=== PATIENT | male | born 1970 | race Caucasian/White ===

== ENCOUNTER 2016-06-12 06:23 | Emergency (ER) | payer MEDICAID ==
[2016-06-12] MEDS ORDERED: ONDANSETRON 4 MG/2 ML VIAL ONE (06:27)
[2016-06-12] MEDS ORDERED: LORazepam 2 MG/ML INJ IVP ONE ×3 (06:27→08:03)
[2016-06-12] MEDS ORDERED: NS 2,000 ML IV ONE (06:27)
--- NOTE | 2016-06-12 06:31 | EDPHY ---
H & P HPI/ROS: HPI CHIEF COMPLAINT: Alcohol draw, tremors HISTORY OF PRESENT ILLNESS: This patient very pleasant 46-year-old male homeless, and drinks alcohol daily he tells me he drinks vodka and drinks a large quantity of this. He states his last drink was at 7:00 p.m. last night he has [facility] and arrived to the emergency room by EMS for nausea, vomiting and tremors. Patient states as he feels he is getting through significant withdrawal. He denies any chest pain or shortness of breath denies headache. Patient's post be taking Depakote for bipolar however has not done so in a few days Upon arrival here in the emergency room the patient is tremulous, nauseous however does not have any other complaints. Patient denies any hallucinations. Of note this patient tells me that approximately a week week and a half ago patient was admitted to [facility] and in the ICU for 4 days for alcohol withdrawal and alcohol withdrawal seizures he tells me was on life support and intubated. Past Medical History: Bipolar disorder, Daily alcohol use, alcohol abuse, alcohol withdraw seizures Past Surgical History: No recent surgical history Social History: Homeless, drinks daily alcohol Family History: Noncontributory ROS REVIEW OF SYSTEMS: A comprehensive 10 point review of systems is otherwise negative aside from elements mentioned in the history of present illness. Exam Constitutional tremulous, anxious, sweaty triage nursing summary reviewed, vital signs reviewed, awake/alert. (tachy 116) Eyes normal conjunctivae and sclera, EOMI, PERRLA. HENT normal inspection, atraumatic, moist mucus membranes, no epistaxis, neck supple/ no meningismus, no raccoon eyes. Respiratory clear to auscultation bilaterally, normal breath sounds, no respiratory distress, no wheezing. Cardiovascular tachycardia, regular rhythm, no murmur, no edema, distal pulses normal. Gastrointestinal soft, non-tender, no rebound, no guarding, normal bowel sounds, no distension, no pulsatile mass. Genitourinary no CVA tenderness. Musculoskeletal no midline vertebral tenderness, full range of motion, no calf swelling, no tenderness of extremities, no meningismus, good pulses, neurovascularly intact. Skin diaphoretic, pink, warm, no rash, skin atraumatic. Neurologic tremulous, anxious awake, alert and oriented x 3, AAOx3, moves all 4 extremities equally, motor intact, sensory intact, CN II-XII intact, normal cerebellar, normal vision, normal speech. Psychiatric anxious Heme/Lymph/Immune no lymphadenopathy. Differential Diagnosis: Includes but is not limited to in a particular order alcohol withdrawal, dehydration, electrolyte abnormality, delirium tremens Medical Decision Making: The patient had an IV established be placed on full swatch paster, patient be given IV fluid bolus normal saline, an IV Ativan for alcohol withdrawal. He has been given 2 mg initial upon arrival he will most likely need another 2 mg. Re-evaluation: 0636: re-evaluation at this time patient received 4 mg IV Ativan he is getting IV fluids his tremors much improved he still is noted to be tachycardic in the 116 EKG interpretation by me on record in [employer] system. Impression time of EKG 6:41 a.m., this is sinus tachycardia rate of 100. Normal intervals. No signs of acute ischemia. No signs of injury pattern. 0708: Patient signed over to Dr. Nevarez at 7:00 a.m. shift change. Patient here with tachycardia and tremors greatly improved after IV fluids and 4 mg IV Ativan. Patient will need reassessment. No evidence of delirium tremens at this time. Magnesium noted to be leveling repleting this. Source: Patient, EMS - Personal History Tetanus Vaccine Date: 2011 - Medical/Surgical History Hx Asthma: No Hx Chronic Respiratory Disease: No Hx Diabetes: No Hx Cardiac Disease: No Hx Renal Disease: No Hx Cirrhosis: No Hx Alcoholism: Yes Hx HIV/AIDS: No Hx Splenectomy or Spleen Trauma: No Other PMH: Seizures, ETOH and drug abuse, BIPOLAR,HTN. Pt. has been sober for 0 days. - Social History Smoking Status: Current every day smoker Constitutional: Initial Vital Signs O2 Sat (%) 95 06/12/16 06:26 O2 Delivery Mode Room Air O2 (L/minute) 2 Allergies/Adverse Reactions: Penicillins Allergy (Intermediate, Verified 12/25/15 16:06) Home Medications: Medication Instructions Recorded Divalproex ER [Depakote ER 500 MG 500 mg PO BID #60 tab 12/25/15 (*)] Wellbutrin Xl 12/25/15 Medical Decision Making - Data Points Laboratory Results: Laboratory Results 06/12/16 06:30 06/12/16 06:30 Medications Given: Discontinued Medications Chlordiazepoxide (Librium 25 Mg Prepack#6) 1 btl TAKEHOME EDNOW ONE Stop: 06/12/16 11:44 Last Admin: 06/12/16 11:51 Dose: 1 btl Chlordiazepoxide HCl (Librium) 25 mg PO EDNOW ONE Stop: 06/12/16 07:47 Last Admin: 06/12/16 07:50 Dose: 25 mg Sodium Chloride (Ns) 2,000 mls @ 0 mls/hr IV ONCE ONE PRN Reason: Wide Open Stop: 06/12/16 06:28 Last Admin: 06/12/16 06:41 Dose: 2,000 mls Magnesium Sulfate (Magnesium Sulf 2 Gm (Premix)) 50 mls @ 50 mls/hr IV EDNOW ONE Stop: 06/12/16 08:06 Last Admin: 06/12/16 07:38 Dose: 50 mls Lorazepam (Ativan Injection) 2 mg IVP EDNOW ONE Stop: 06/12/16 06:28 Last Admin: 06/12/16 06:40 Dose: 2 mg Lorazepam (Ativan Injection) 2 mg IVP EDNOW ONE Stop: 06/12/16 06:29 Last Admin: 06/12/16 06:41 Dose: 2 mg Lorazepam (Ativan Injection) 2 mg IVP EDNOW ONE Stop: 06/12/16 08:04 Last Admin: 06/12/16 08:05 Dose: 2 mg Departure - Departure Disposition: Home, Routine, Self-Care Clinical Impression: Alcohol withdrawal Qualifiers: Complication of substance-induced condition: uncomplicated Qualified Code(s): F10.230 - Alcohol dependence with withdrawal, uncomplicated Condition: Fair Instructions: Chlordiazepoxide (By mouth), Alcohol Withdrawal (ED) Additional Instructions: Go directly to the [facility]. Librium per [facility]. Referrals: Patient,NotPresent [Unknown] - As per Instructions
[2016-06-12 06:41] VITALS: TEMP 98.6
--- NOTE | 2016-06-12 06:43 | CPEKG ---
Heart Rate: 100 RR Interval: 600 P-R Interval: 136 QRSD Interval: 88 QT Interval: 348 QTC Interval: 449 P Morenci: 24 QRS Morenci: 1 T Wave Morenci: 35 EKG Severity - OTHERWISE NORMAL ECG - EKG Impression: SINUS TACHYCARDIA Electronically Signed By: Ran Parmar 13-Jun-2016 06:38:41
[2016-06-12 06:47] LABS: % IMMATURE GRANULYOCYTES 0.5 % (0.0-1.1); ABSOLUTE IMMATURE GRANULOCYTES 0.07 10^3/uL (0.00-0.10); ADD DIFF? NO; ADD MORPH? NO; ADD SCAN? NO; ATYPICAL LYMPHOCYTE FLAG 0 (0-99); FRAGMENT RBC FLAG 0 (0-99); HEMATOCRIT 38.8 % (40.0-51.0); HEMOGLOBIN 13.7 g/dL (13.7-17.5); LEFT SHIFT FLG 10 (0-99); LIPEMIA HEMOLYSIS FLAG 90 (0-99); MEAN CELL HEMOGLOBIN 35.2 pg (27.9-34.1); MEAN CELL HEMOGLOBIN CONCENTR. 35.3 g/dL (32.4-36.7); MEAN CELL VOLUME 99.7 fL (81.5-99.8); MEAN PLATELET VOLUME 9.4 fL (8.7-11.7); PLATELET CLUMPS FLAG 0 (0-99); PLATELET COUNT 240 10^3/uL (150-400); RED BLOOD CELL COUNT 3.89 10^6/uL (4.40-6.38); RED CELL DISTRIBUTION WIDTH 14.6 % (11.5-15.2)
[2016-06-12 06:55] LABS: ALANINE AMINOTRANSFERASE 42 IU/L (21-72); ALBUMIN 3.9 g/dL (3.5-5.0); ALKALINE PHOSPHATASE 99 IU/L (38-126); ANION GAP 11 mEq/L (8-16); ASPARTATE AMINOTRANSFERASE 58 IU/L (17-59); BILIRUBIN,TOTAL 0.9 mg/dL (0.1-1.4); BILIRUBIN-CONJUGATED 0.3 mg/dL (0.0-0.5); BILIRUBIN-UNCONJUGATED 0.6 mg/dL (0.0-1.1); CALCIUM 9.4 mg/dL (8.5-10.4); CARBON DIOXIDE 27 mEq/l (22-31); CHLORIDE 103 mEq/L (97-110); CREATININE 0.6 mg/dL (0.7-1.3); ETHANOL SERUM < 10 mg/dL (0-10); GLOMERULAR FILTRATION RATE > 60; GLUCOSE 107 mg/dL (70-100); MAGNESIUM 1.5 mg/dL (1.6-2.3); POTASSIUM 4.1 mEq/L (3.5-5.2); SODIUM 141 mEq/L (134-144)
[2016-06-12] MEDS ORDERED: MAGNESIUM SULF 2 GM/WATER 50 ML IV ONE (07:07)
[2016-06-12] MEDS ORDERED: chlordiazePOXIDE 25 MG CAP PO ONE (07:46)
[2016-06-12] MEDS ORDERED: LORazepam 2 MG/ML INJ ONE (08:01)
[2016-06-12 08:07] VITALS: RESP 16
[2016-06-12] MEDS ORDERED: CHLORDIAZEPOXIDE 25MG PREPK#6 BTL TAKEHOME ONE (11:43)
[2016-06-12 12:00] VITALS: BP 122/87; PULSE 86; O2SAT 91
== END 2016-06-12 12:01 | disposition home or self-care (01) ==
LOC: EDUNIT#
DX: F10.230 Alcohol dependence with withdrawal, uncomplicated (principal); I10 Essential (primary) hypertension; F17.200 Nicotine dependence, unspecified, uncomplicated
CPT/HCPCS: 96374; G0480; J2405

== ENCOUNTER 2016-06-12 17:05 | Emergency (ER) | payer MEDICAID ==
[2016-06-12] MEDS ORDERED: NS 1,000 ML IV ONE (17:25)
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
[2016-06-12 19:05] VITALS: BP 147/90; PULSE 91; RESP 16; TEMP 97.9; O2SAT 93
== END 2016-06-12 19:06 | disposition home or self-care (01) ==
LOC: EDUNIT#
DX: F10.10 Alcohol abuse, uncomplicated (principal); I10 Essential (primary) hypertension; F17.200 Nicotine dependence, unspecified, uncomplicated

== ENCOUNTER 2017-03-24 23:38 | Emergency (ER) | payer MEDICAID ==
[2017-03-24 23:46] VITALS: RESP 16
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
[2017-03-25 03:29] VITALS: BP 121/80; PULSE 61; TEMP 97.9; O2SAT 96
== END 2017-03-25 03:27 | disposition home or self-care (01) ==
LOC: EDUNIT#
DX: M54.2 Cervicalgia (principal); R20.2 Paresthesia of skin; F17.200 Nicotine dependence, unspecified, uncomplicated

== ENCOUNTER 2017-06-26 14:11 | Emergency (ER) | payer MEDICAID ==
[2017-06-26 14:17] VITALS: BP 101/84; PULSE 133; RESP 18; TEMP 98.1; O2SAT 95
--- NOTE | 2017-06-26 14:52 | EDPHY ---
H & P Time Seen by Provider: 06/26/17 14:48 HPI/ROS: CHIEF COMPLAINT: "I want to go to detox" HISTORY OF PRESENT ILLNESS: 47-year-old homeless male history of alcoholism self [facility] requesting alcohol detoxification assistance, referred back to the emergency department to receive benzodiazepine. Denies suicidal or homicidal ideation. Last drink was approximately 5 hr ago. Denies seizure. Denies hallucination. Denies acute trauma or fall. REVIEW OF SYSTEMS: A ten point review of systems was performed and is negative with the exception of the items mentioned in the HPI PAST MEDICAL & SURGICAL HISTORY: Alcoholism. SOCIAL HISTORY:Positive for daily alcohol use PHYSICAL EXAM (Prior to examination, patient consented to physical exam, hands were washed and my usual and customary physical exam procedures followed) 1) GENERAL: poorly kept, foul smelling,, alert and oriented. Appears to be in no acute distress. Answering questions appropriately. Tremulous. 2) HEAD: Normocephalic, atraumatic 3) HEENT: Pupils equal, round, reactive to light bilaterally. Sclera anicteric. 4) NECK: Full range of motion, no meningeal signs. 5) LUNGS: Clear auscultation bilaterally, no wheezes, no rhonchi, no retractions. 6) HEART: Regular rate and rhythm, no murmur, no heave, no gallop. 7) ABDOMEN: No guarding, no rebound, no focal tenderness, 8) MUSCULOSKELETAL: Moving all extremities, no focal areas of tenderness, no obvious trauma. No peripheral edema or discoloration. 9) BACK: No CVA tenderness, no midline vertebral tenderness, no fluctuance, no step-off, no obvious trauma, no visual or palpable abnormality. 10) SKIN: No rash, no petechiae. 11) Psychiatric: Patient is oriented X 3, there is no agitation. 12) NEURO: Awake, alert, and oriented to person, place and time. Answers questions appropriately. There were no obvious focal neurologic abnormalities. No cerebellar dysfunction. Cranial nerves 2 through to 12 intact. Normal steady gait. Upper and lower extremities bilaterally with strength 5 / 5, reflexes 2+. DIFFERENTIAL DIAGNOSIS: In no particular include but limited to delirium tremens, acute alcohol withdrawal, alcohol withdrawal seizure Smoking Status: Current every day smoker Constitutional: Initial Vital Signs Temperature (C) 36.7 C 06/26/17 14:12 Heart Rate 133 H 06/26/17 14:12 Respiratory Rate 18 06/26/17 14:12 Blood Pressure 101/84 H 06/26/17 14:12 O2 Sat (%) 95 06/26/17 14:12 Allergies/Adverse Reactions: Penicillins Allergy (Intermediate, Verified 12/25/15 16:06) Home Medications: Medication Instructions Recorded Divalproex ER [Depakote ER 500 MG 500 mg PO BID #60 tab 12/25/15 (*)] Wellbutrin Xl 12/25/15 MDM/Departure - MDM ED Course/Re-evaluation: 3:04 p.m.: Plan will be benzodiazepine, [facility] with [facility]. Doubt DTs. Doubt seizure. Plan will be discharge to [facility] with Librium. He denies suicidal or homicidal ideation. Care of patient under supervision of secondary supervising physician Dr Pineda . - Depart Disposition: Home, Routine, Self-Care Clinical Impression: Alcohol withdrawal Qualifiers: Complication of substance-induced condition: uncomplicated Qualified Code(s): F10.230 - Alcohol dependence with withdrawal, uncomplicated Condition: Good Instructions: Abuse of Alcohol (ED), Chlordiazepoxide (By mouth) Referrals: [facility] Detox 24 Hours [Outside] (Go directly to the [facility])
[2017-06-26] MEDS ORDERED: CHLORDIAZEPOXIDE 25MG PREPK#6 BTL TAKEHOME ONE (15:08)
[2017-06-26] MEDS ORDERED: LORazepam 1 MG TAB PO ONE (15:08)
== END 2017-06-26 15:10 | disposition home or self-care (01) ==
DX: F10.230 Alcohol dependence with withdrawal, uncomplicated (principal); F17.200 Nicotine dependence, unspecified, uncomplicated

== ENCOUNTER 2017-06-27 12:27 | Emergency (ER) | payer MEDICAID ==
[2017-06-27 13:02] LABS: PLATELET COUNT 198 10^3/uL (150-400)
[2017-06-27] MEDS ORDERED: OLANZapine DISINTEGR 10 MG TAB PO ONE (13:33)
[2017-06-27] MEDS ORDERED: LORazepam 1 MG TAB PO ONE (14:08)
[2017-06-27] MEDS: NICOTINE POLACRILEX 2 MG GUM B PRN (14:11)
[2017-06-27] MEDS ORDERED: HALOPERIDOL LACT 5 MG/ML INJ IVP ONE (16:27)
--- NOTE | 2017-06-27 18:15 | EDPHY ---
H & P Stated Complaint: Hallucinations. M1 Hold - Personal History Current Tetanus Diphtheria and Acellular Pertussis (TDAP): Yes Tetanus Vaccine Date: 2011 - Medical/Surgical History Hx Asthma: No Hx Chronic Respiratory Disease: No Hx Diabetes: No Hx Cardiac Disease: No Hx Renal Disease: No Hx Cirrhosis: No Hx Alcoholism: Yes Hx HIV/AIDS: No Hx Splenectomy or Spleen Trauma: No Other PMH: Seizures, ETOH and drug abuse, BIPOLAR,HTN. - Social History Smoking Status: Current every day smoker Time Seen by Provider: 06/27/17 18:17 HPI/ROS: Chief complaint: Mental health hold History of present illness: This is a 47-year-old male brought to the emergency department by police on a mental health hold. Apparently he was found by police apparently hallucinating, specifically talking to a metal box. He does admit to alcohol use. Apparently he did suffer a head injury on the 9th of this month, was seen at [facility]. Records obtained, he did have a CT scan of the head and neck without acute findings at that time. On my evaluation patient is agitated. He states he should not be here. He states he was not hallucinating, he thought his girlfriend was playing tricks on him. He denies any illness or injury. He denies SI or HI. He does not want to be here. Review of systems: A 10 point review of systems was obtained and other than described above was negative (Bhupendra Russo) - Physical Exam Exam: General Appearance: Alert, nontoxic. Eyes: Pupils equal and round no pallor or injection. ENT, Mouth: Mucous membranes moist. Respiratory: There are no retractions, lungs are clear to auscultation. Cardiovascular: Regular rate and rhythm. Gastrointestinal: Abdomen is soft and non tender, no masses, bowel sounds normal. Neurological: Alert. Strength and sensation intact and symmetrical. Skin: Warm and dry, no rashes. Sabra in the scalp that appear to be healing well. Musculoskeletal: Neck is supple non tender. Extremities are symmetrical, full range of motion. Psychiatric: Patient is oriented X 3, there is no agitation. (Bhupendra Russo) Constitutional: Initial Vital Signs Temperature (C) 36.6 C 06/27/17 12:41 Heart Rate 108 H 06/27/17 12:41 Respiratory Rate 16 06/27/17 12:41 Blood Pressure 113/81 H 06/27/17 12:41 O2 Sat (%) 96 06/27/17 12:41 O2 Delivery Mode Room Air Allergies/Adverse Reactions: Penicillins Allergy (Intermediate, Verified 12/25/15 16:06) Home Medications: Medication Instructions Recorded Divalproex ER [Depakote ER 500 MG 500 mg PO BID #60 tab 12/25/15 (*)] Wellbutrin Xl 12/25/15 Triamcinolone 0.025% 1 kat TP BID #15 g 06/26/17 [Triamcinolone 0.025% Ointment (*)] Medical Decision Making ED Course/Re-evaluation: Patient seen under the supervision of my secondary supervising physician Dr. Giovanni Cook. Patient presents to the emergency department on an M1 hold. He is evaluated and medically cleared. Initial evaluation the psychiatric team are concerned he may still be under the influence of a drug given his agitation. They would like to delay evaluation until later this evening or early tomorrow morning. Patient has been agitated, he has been treated with Zyprexa, Ativan, Haldol. Now resting comfortably. Care of patient will be turned over to Dr. Arash Cruz at end of shift, 1800 hr. (Bhupendra Russo) 11:15 p.m. patient is still waiting for re-evaluation. Care transferred to Dr. Walters. (Arash Cruz) 6:15 a.m.- Over the course of my shift, patient has received Librium for alcohol withdrawal symptoms. His vital signs have remained normal. He was seen by the mental health worker who recommends [facility] his [facility] use. He was there yesterday and seemed to be himself though more angry than usual. They questioned if this was because he was in pain. He is welcome neck there in the patient would like to go. We will send him with Librium and some he rodriguez for pain. He no longer seems gravely disabled. ( Krys Walters) Differential Diagnosis: Included but not limited to drug abuse, anxiety, depression, bipolar, schizophrenia (Bhupendra Russo) - Data Points Laboratory Results: Laboratory Results 06/27/17 12:40 06/27/17 12:40 Medications Given: Discontinued Medications Chlordiazepoxide (Librium 25 Mg Prepack#6) 1 btl TAKEHOME EDNOW ONE Stop: 06/28/17 06:18 Last Admin: 06/28/17 06:50 Dose: 1 btl Chlordiazepoxide HCl (Librium) 50 mg PO EDNOW ONE Stop: 06/28/17 00:10 Last Admin: 06/28/17 00:11 Dose: 50 mg Chlordiazepoxide HCl (Librium) 25 mg PO EDNOW ONE Stop: 06/28/17 06:02 Last Admin: 06/28/17 06:16 Dose: 25 mg Diphenhydramine HCl (Benadryl Injection) 25 mg IVP EDNOW ONE Stop: 06/27/17 16:28 Last Admin: 06/27/17 16:34 Dose: 25 mg Haloperidol Lactate (Haldol Injection) 10 mg IVP EDNOW ONE Stop: 06/27/17 16:28 Last Admin: 06/27/17 16:34 Dose: 10 mg Ibuprofen (Motrin) 400 mg PO EDNOW ONE Stop: 06/28/17 06:18 Last Admin: 06/28/17 06:49 Dose: 400 mg Lorazepam (Ativan) 2 mg PO EDNOW ONE Stop: 06/27/17 14:09 Last Admin: 06/27/17 14:11 Dose: 2 mg Nicotine Polacrilex (Nicorette) 2 mg B PRN PRN PRN Reason: Nicotine Withdrawal Stop: 12/24/17 13:59 Last Admin: 06/28/17 04:55 Dose: 2 mg Olanzapine (Zyprexa Zydis) 10 mg PO EDNOW ONE Stop: 06/27/17 13:34 Last Admin: 06/27/17 13:36 Dose: 10 mg Oxycodone/Acetaminophen (Percocet 5/325mg Prepack#4) 1 btl TAKEHOME EDNOW ONE Stop: 06/28/17 06:28 Last Admin: 06/28/17 06:50 Dose: 1 btl Departure - Departure Disposition: Home, Routine, Self-Care Clinical Impression: Hallucinations Alcohol intoxication Qualifiers: Complication of substance-induced condition: with delirium Qualified Code(s): F10.921 - Alcohol use, unspecified with intoxication delirium Condition: Good Instructions: Chlordiazepoxide/Clidinium (By mouth), Oxycodone/Acetaminophen ( By mouth), At-Risk Alcohol Use (ED) Referrals: [facility] [Outside] - As per Instructions
[2017-06-27 22:12] VITALS: RESP 16
[2017-06-28] MEDS ORDERED: chlordiazePOXIDE 25 MG CAP ONE ×2 (00:08→05:59)
[2017-06-28] MEDS ORDERED: chlordiazePOXIDE 25 MG CAP PO ONE ×2 (00:09→06:01)
[2017-06-28] MEDS: NICOTINE POLACRILEX 2 MG GUM B PRN (04:55)
[2017-06-28 05:01] VITALS: O2SAT 97
[2017-06-28] MEDS ORDERED: CHLORDIAZEPOXIDE 25MG PREPK#6 BTL TAKEHOME ONE (06:17)
[2017-06-28] MEDS ORDERED: IBUPROFEN 200 MG TAB PO ONE (06:17)
[2017-06-28] MEDS ORDERED: OXYCODONE/APAP 5/325MG PREPACK#4 BTL TAKEHOME ONE (06:27)
[2017-06-28 06:59] VITALS: BP 113/75; PULSE 78; TEMP 98.1
== END 2017-06-28 07:08 | disposition home or self-care (01) ==
LOC: EDUNIT#
DX: R44.3 Hallucinations, unspecified (principal); F10.921 Alcohol use, unspecified with intoxication delirium; I10 Essential (primary) hypertension; F17.200 Nicotine dependence, unspecified, uncomplicated
CPT/HCPCS: 80305; 96374; G0480; J1200; J1630

== ENCOUNTER 2017-07-06 15:54 | Emergency (ER) | payer MEDICAID ==
[2017-07-06 16:01] VITALS: BP 147/80; PULSE 112; RESP 20; TEMP 98; O2SAT 95
--- NOTE | 2017-07-06 16:04 | EDPHY ---
H & P Time Seen by Provider: 07/06/17 16:01 HPI/ROS: CHIEF COMPLAINT: "I need my edison removed" HISTORY OF PRESENT ILLNESS: The patient is a 39-year-old male who presents to the emergency department to have his head edison removed. Patient states he had a seizure activity 8-10 days ago. He fell striking his head. This required suture repair. This was performed to [facility]. He does not want to edison removed there. He would rather have his edison removed here. He has had mild headache since the incident. No focal deficits. No nausea or vomiting. The patient continues to drink alcohol. No further seizure activity. REVIEW OF SYSTEMS: My complete review of systems is negative except as mentioned in the HPI. Past Medical/Surgical History: Includes alcohol abuse, seizure Smoking Status: Current every day smoker Physical Exam: Vitals noted GENERAL: Well-appearing, in no acute distress, alert. HEENT: Eyes normal to inspection, normal pharynx, no signs of dehydration. Patient has right posterior edison present. There is no surrounding erythema or warmth. No hematoma. No discharge. NECK: No thyromegaly, no lymphadenopathy, supple. No spinal tenderness RESPIRATORY: Clear to auscultation bilaterally, no rales, rhonchi or wheezing. CVS: Regular rate and rhythm, no rubs, murmurs, or gallops. ABDOMEN: Soft, nontender. BACK: Normal to inspection, no CVA tenderness. SKIN: Normal color, no rash, warm, dry. No pallor. EXTREMITIES: Normal NEURO/PSYCH: Alert and oriented x3, normal mood and affect, normal motor sensory exam. No obvious cranial nerve deficit. Constitutional: Initial Vital Signs Temperature (C) 36.6 C 07/06/17 16:00 Heart Rate 112 H 07/06/17 16:00 Respiratory Rate 20 07/06/17 16:00 Blood Pressure 147/80 H 07/06/17 16:00 O2 Sat (%) 95 07/06/17 16:00 O2 Delivery Mode Room Air Allergies/Adverse Reactions: Penicillins Allergy (Intermediate, Verified 12/25/15 16:06) Home Medications: Medication Instructions Recorded Divalproex ER [Depakote ER 500 MG 500 mg PO BID #60 tab 12/25/15 (*)] Wellbutrin Xl 12/25/15 Triamcinolone 0.025% 1 kat TP BID #15 g 06/26/17 [Triamcinolone 0.025% Ointment (*)] Lamictal 07/06/17 Medical Decision Making ED Course/Re-evaluation: In the emergency department I discussed possible etiologies with the patient. He had his edison removed. He is given warnings prior to leaving. He will return with worsening symptoms. Differential Diagnosis: My differential includes but is not limited to staple remover, wound infection, abscess, intracranial hemorrhage, spinal injury Departure - Departure Disposition: Home, Routine, Self-Care Clinical Impression: Visit for wound check Condition: Good Instructions: Wound Healing and Your Diet (ED) Referrals: [facility],. [Clinic] - 3-4 days, if not improved
== END 2017-07-06 16:22 | disposition home or self-care (01) ==
LOC: CED 15:54
DX: Z48.02 Encounter for removal of sutures (principal); F17.200 Nicotine dependence, unspecified, uncomplicated

== ENCOUNTER 2017-09-04 17:59 | Emergency (ER) | payer MEDICAID ==
--- NOTE | 2017-09-04 18:13 | EDPHY ---
H & P Stated Complaint: WANTS TO QUIT DRINKING, LEFT [facility] TODAY, + ETOH Source: Patient Exam Limitations: No limitations - Personal History Current Tetanus Diphtheria and Acellular Pertussis (TDAP): Yes Tetanus Vaccine Date: 2011 - Medical/Surgical History Hx Asthma: No Hx Chronic Respiratory Disease: No Hx Diabetes: No Hx Cardiac Disease: No Hx Renal Disease: No Hx Cirrhosis: No Hx Alcoholism: Yes Hx HIV/AIDS: No Hx Splenectomy or Spleen Trauma: No Other PMH: Seizures, ETOH and drug abuse, BIPOLAR,HTN. - Social History Smoking Status: Current every day smoker Time Seen by Provider: 09/04/17 18:12 HPI/ROS: HPI: This is a 47-year-old male who presents with Chief Complaint: WANTS TO QUIT DRINKING, LEFT [facility] TODAY, + ETOH Location: psych Quality: Intoxication with alcohol Duration: Today Signs and Symptoms: no fever, no nausea, no vomiting, no hematemesis, no blood in stool, no abdominal bloating, no diarrhea, no back pain, no urinary symptoms , no testicular/groin pain, no indigestion, no chest pain, no shortness of breath Timing: Acute on chronic Severity: Severe Context: Patient reports that he has history of bipolar disorder and is supposed to be taking Depakote but is noncompliance as well as alcohol abuse and dependence presents today voluntarily from the street reporting that he drank a "traveler" of vodka since 8:00 a.m. This morning. He was [facility] into the [facility] for approximately 2 days per his admission and did not drink alcohol for those 2 days. He reports that if he is discharged at this time he is going to walk across the street in front of a car and get hit in order to end his life. He reports that when he drinks alcohol in becomes intoxicated he becomes very sad about his entire life. He reports that he has a girlfriend that is and [place] that has a 14-year-old girl that he cares about deeply. He has not eaten any food today and is requesting a meal. Patient denies homicidal ideation/paranoia/hallucinations. Modifying Factors: None Comment: ROS: see HPI Constitutional: No fever, no chills, no weight loss Eyes: No blurred vision Respiratory: No shortness of breath, no cough Cardiovascular: No chest pain, no palpitations Gastrointestinal: No nausea, no vomiting, no diarrhea, no hematemesis, no blood in stool Genitourinary: No dysuria, no blood in urine Extremities: No myalgias, no edema Neurologic: No weakness, no numbness Skin: No rashes, no petechiae Hematologic: No bruising, no bleeding MEDICAL/SURGICAL/SOCIAL HISTORY: Medical history: Seizures, ETOH and drug abuse, BIPOLAR, HTN. Surgical history: Denies Social history: Homeless. Current every day smoker. Family history noncontributory. CONSTITUTIONAL: Untidy, intoxicated, smells heavily of alcohol middle-aged white male, awake and alert, no obvious distress HEENT: Atraumatic and normocephalic, PERRL, EOMI. Nares patent; no rhinorrhea; no nasal mucosal edema. Tympanic membranes clear. Oropharynx clear, no exudate and moist pink mucosa. Airway patent. No lymphadenopathy. No meningismus. Cardiovascular: Normal S1/S2, regular rate, regular rhythm, without murmur rub or gallop. PULMONARY/CHEST: Symmetrical and nontender. Clear to auscultation bilaterally. Good air movement. No accessory muscle usage. ABDOMEN: Soft, nondistended, nontender, no rebound, no guarding, no peritoneal signs, no masses or organomegaly. No CVAT. EXTREMITIES: 2/2 pulses, strength 5/5, no deformities, no clubbing, no cyanosis or edema. NEUROLOGICAL: no focal neuro deficits. GCS 15. SKIN: Warm and dry, no erythema. no rash. Good capillary refill. PSYCH: Fair eye contact, no flight of ideas, organized thought process, fair insight and judgment, no auditory and visual command hallucinations, + suicidal ideation with a plan, no homicidal ideation, no paranoia ([place]) Constitutional: Initial Vital Signs Temperature (C) 36.7 C 09/04/17 18:05 Heart Rate 89 09/04/17 18:05 Respiratory Rate 16 09/04/17 18:05 Blood Pressure 133/101 H 09/04/17 18:05 O2 Sat (%) 96 09/04/17 18:05 O2 Delivery Mode Room Air Allergies/Adverse Reactions: Penicillins Allergy (Intermediate, Verified 12/25/15 16:06) Home Medications: Medication Instructions Recorded Gabapentin 09/04/17 Librium 09/04/17 OLANZapine 09/04/17 Medical Decision Making ED Course/Re-evaluation: 1819: Patient placed on detain her as he is clearly intoxicated and not thinking clearly. Patient admits that he wants a dry place to stay during the rain and a warm meal. He checked himself out this morning from the [facility] and drink alcohol starting at 8:00 a.m. I suspect that once he becomes more sober and is re-evaluated, he will no longer have suicidal thoughts. Patient is currently calm and cooperative. He reports that he is not willing to go back to the [facility] at this time. Patient does not meet M1 hold criteria. 1824: Breathalyzer .273 1899: Watching TV, ate a sandwich and drinking juice without any difficulties. 2046: Reassessed patient who reports that he is willing to go to the [facility]. Given 50 mg of Librium. Ambulatory without any signs of ataxia. Patient denies any homicidal ideation/suicidal ideation. He has no signs of alcohol withdrawal seizures. Patient requesting home medications that he has not taken today including Zyprexa 5 mg, gabapentin 600 mg, Depakote 500 mg. 2234: Discharged to the [facility]. This patient was seen under the supervision of my secondary supervising physician. I evaluated care for this patient independently. Discussed this patient with Dr. Rose who did see the patient. (Angelica Mukherjee) Differential Diagnosis: Differential diagnosis includes but is not limited to alcohol intoxication, alcohol delirium, major depression. (Angelica Mukherjee) Other Provider: The patient was evaluated and managed by the Physician Digital Advertising Analyst. [I discussed the patient's presentation and course with the midlevel provider with them and agree with the evaluation.] My co-signature indicates that I have reviewed this chart and I agree with the findings and plan of care as documented. I am the secondary supervising physician. I did evaluate this patient briefly. As documented he is untidy, smells of alcohol, and has been sobering appropriately in the emergency department. He is alert, oriented, with a nonfocal neurologic exam. Vital signs have been stable. We discussed options including discharge to the [facility] where he could continue to have treatment for alcohol withdrawal. Patient does report that he is concerned that he may have an alcohol withdrawal seizure. He agreed that a discharged to the [facility] would be the safest option. He was given a dose of Librium in the emergency department and discharged to the [facility] of Librium protocol. (Johanna Rose) - Data Points Medications Given: Discontinued Medications Chlordiazepoxide (Librium 25 Mg Prepack#6) 1 btl TAKEHOME EDNOW ONE Stop: 09/04/17 20:44 Last Admin: 09/04/17 22:14 Dose: 1 btl Chlordiazepoxide HCl (Librium) 50 mg PO EDNOW ONE Stop: 09/04/17 20:47 Last Admin: 09/04/17 22:13 Dose: 50 mg Divalproex Sodium (Depakote) 500 mg PO ONCE ONE Stop: 09/04/17 22:00 Last Admin: 09/04/17 22:14 Dose: 500 mg Gabapentin (Neurontin) 600 mg PO EDNOW ONE Stop: 09/04/17 21:59 Last Admin: 09/04/17 22:14 Dose: 600 mg Olanzapine (Zyprexa) 5 mg PO ONCE ONE Stop: 09/04/17 21:59 Last Admin: 09/04/17 22:13 Dose: 5 mg Departure - Departure Disposition: Home, Routine, Self-Care Clinical Impression: Alcohol intoxication, Alcoholism Condition: Good Instructions: Abuse of Alcohol (ED) Additional Instructions: Please go directly to the [facility]. Referrals: [facility] [Outside] - As per Instructions
[2017-09-04] MEDS ORDERED: CHLORDIAZEPOXIDE 25MG PREPK#6 BTL TAKEHOME ONE (20:43)
[2017-09-04] MEDS ORDERED: chlordiazePOXIDE 25 MG CAP PO ONE (20:46)
[2017-09-04 21:58] VITALS: BP 103/85
[2017-09-04] MEDS ORDERED: OLANZapine 2.5 MG TAB PO ONE (21:58)
[2017-09-04] MEDS ORDERED: GABAPENTIN 300 MG CAP PO ONE (21:58)
[2017-09-04] MEDS ORDERED: DIVALPROEX NA 500 MG TAB PO ONE (21:59)
== END 2017-09-04 22:32 | disposition home or self-care (01) ==
DX: F10.129 Alcohol abuse with intoxication, unspecified (principal); F17.200 Nicotine dependence, unspecified, uncomplicated; I10 Essential (primary) hypertension

== ENCOUNTER 2017-10-22 03:50 | Emergency (ER) | payer MEDICAID, OTHER ==
[2017-10-22] MEDS ORDERED: LORazepam 2 MG/ML INJ IVP ONE ×2 (03:57→05:07)
[2017-10-22] MEDS ORDERED: NS 1,000 ML IV ONE (03:57)
[2017-10-22] MEDS ORDERED: PHENobarbital NA 130 MG/ML VIAL IVP ONE (05:07)
--- NOTE | 2017-10-22 05:10 | EDPHY ---
H & P Stated Complaint: Seizure at [facility], ETOH withdrawal Time Seen by Provider: 10/22/17 04:07 HPI/ROS: HPI The patient presents with a seizure, brought in by ambulance from the [facility] where he has been for the last 1 day. His last alcoholic drink was yesterday. He normally drinks 2 pt of hard alcohol a day. He had been feeling tremulous today while at the [facility], he had improved with Librium. He says he felt a seizure coming on and then lost consciousness. He did bite his tongue. He continues to feel shaky now without any nausea or vomiting. He is feeling slightly anxious.. REVIEW OF SYSTEMS Constitutional: No fever, no chills. Eyes: No discharge. ENT: No sore throat. Cardiovascular: No chest pain, no palpitations. Respiratory: No cough, no shortness of breath. Gastrointestinal: No abdominal pain, no vomiting. Genitourinary: No hematuria. Musculoskeletal: No back pain. Skin: No rashes. Neurological: No headache. PMHx: Bipolar disorder, hypertension, history of alcohol withdrawal and seizures Soc Hx: Heavy alcohol use PHYSICAL General Appearance: Alert, no distress Eyes: Pupils equal and round no pallor or injection ENT, Mouth: Mucous membranes moist, there is a 1 cm superficial midline tongue laceration Respiratory: There are no retractions, lungs are clear to auscultation Cardiovascular: Tachycardic rate and regular rhythm Gastrointestinal: Abdomen is soft and non-tender, no masses, bowel sounds normal Neurological: A&O, moves all extremities, hand tremors present Skin: Warm and dry, no rashes Musculoskeletal: Neck is supple non tender Extremities: symmetrical, full range of motion Psychiatric: Patient is oriented X 3, there is no agitation Source: Patient, EMS Exam Limitations: No limitations - Personal History Current Tetanus Diphtheria and Acellular Pertussis (TDAP): Yes Tetanus Vaccine Date: 2011 - Medical/Surgical History Hx Asthma: No Hx Chronic Respiratory Disease: No Hx Diabetes: No Hx Cardiac Disease: No Hx Renal Disease: No Hx Cirrhosis: No Hx Alcoholism: Yes Hx HIV/AIDS: No Hx Splenectomy or Spleen Trauma: No Other PMH: Seizures, ETOH and drug abuse, BIPOLAR,HTN. - Social History Smoking Status: Current every day smoker Constitutional: Initial Vital Signs Temperature (C) 36.7 C 10/22/17 03:55 Heart Rate 118 H 10/22/17 03:55 Respiratory Rate 20 10/22/17 03:55 Blood Pressure 144/84 H 10/22/17 03:55 O2 Sat (%) 97 10/22/17 03:55 O2 Delivery Mode Room Air Allergies/Adverse Reactions: Penicillins Allergy (Intermediate, Verified 10/22/17 03:55) Home Medications: Medication Instructions Recorded Gabapentin 09/04/17 Librium 09/04/17 OLANZapine 09/04/17 Medical Decision Making Differential Diagnosis: 47-year-old male with history of alcohol abuse including alcohol withdrawal and seizure presents brought in by ambulance after a seizure which occurred at the [facility] just prior to arrival. The patient does appear to be in alcohol withdrawal currently with tachycardia, tremor. Differential diagnoses considered include alcohol withdrawal seizure, epilepsy, head injury, electrolyte disturbance. In the emergency department, patient was started on IV fluids, he received 2 mg of Ativan with improvement in his symptoms. His symptoms then recurred and he became more tachycardic, I have written for additional Ativan and a dose of phenobarbital. Labs were checked and demonstrated anion gap acidosis which I suspect is more likely due to seizure verses alcoholic ketoacidosis as he does not have any vomiting, has been able to take p.o.. He does have a transaminitis , suspect this is due to his alcohol use. I believe he is suitable for discharge back to the [facility] with Librium. - Data Points Laboratory Results: Laboratory Results 10/22/17 07:00 10/22/17 07:00 10/22/17 10/22/17 07:00 07:00 WBC 9.50 10^3/uL 10^3/uL (3.80-9.50) RBC 4.24 10^6/uL L 10^6/uL (4.40-6.38) Hgb 15.2 g/dL g/dL (13.7-17.5) Hct 45.9 % % (40.0-51.0) MCV 108.3 fL H fL (81.5-99.8) MCH 35.8 pg H pg (27.9-34.1) MCHC 33.1 g/dL g/dL (32.4-36.7) RDW 13.5 % % (11.5-15.2) Plt Count 189 10^3/uL 10^3/uL (150-400) MPV 10.8 fL fL (8.7-11.7) Neut % (Auto) 56.7 % % (39.3-74.2) Lymph % (Auto) 22.7 % % (15.0-45.0) [place] % (Auto) 15.1 % H % (4.5-13.0) Eos % (Auto) 1.9 % % (0.6-7.6) Baso % (Auto) 3.3 % H % (0.3-1.7) Nucleat RBC Rel Count 0.0 % % (0.0-0.2) Absolute Neuts (auto) 5.39 10^3/uL 10^3/uL (1.70-6.50) Absolute Lymphs (auto) 2.16 10^3/uL 10^3/uL (1.00-3.00) Absolute Monos (auto) 1.43 10^3/uL H 10^3/uL (0.30-0.80) Absolute Eos (auto) 0.18 10^3/uL 10^3/uL (0.03-0.40) Absolute Basos (auto) 0.31 10^3/uL H 10^3/uL (0.02-0.10) Absolute Nucleated RBC 0.00 10^3/uL 10^3/uL (0-0.01) Immature Gran % 0.3 % % (0.0-1.1) Immature Gran # 0.03 10^3/uL 10^3/uL (0.00-0.10) Sodium 144 mEq/L mEq/L (135-145) Potassium 3.2 mEq/L L mEq/L (3.3-5.0) Chloride 98 mEq/L mEq/L (97-110) Carbon Dioxide 10 mEq/l L mEq/l (22-31) Anion Gap 36 mEq/L H mEq/L (8-16) BUN 3 mg/dL L mg/dL (7-23) Creatinine 0.6 mg/dL L mg/dL (0.7-1.3) Estimated GFR > 60 Glucose 129 mg/dL H mg/dL (70-100) Calcium 9.2 mg/dL mg/dL (8.5-10.4) Total Bilirubin 1.3 mg/dL mg/dL (0.1-1.4) AST 323 IU/L H IU/L (17-59) ALT 165 IU/L H IU/L (21-72) Alkaline Phosphatase 138 IU/L H IU/L (38-126) Total Protein 7.6 g/dL g/dL (6.3-8.2) Albumin 4.4 g/dL g/dL (3.5-5.0) Ethyl Alcohol < 10 mg/dL mg/dL (0-10) Medications Given: Discontinued Medications Sodium Chloride (Ns) 1,000 mls @ 3,000 mls/hr IV ONCE ONE Stop: 10/22/17 04:16 Last Admin: 10/22/17 04:02 Dose: 1,000 mls Lorazepam (Ativan Injection) 2 mg IVP EDNOW ONE Stop: 10/22/17 03:58 Last Admin: 10/22/17 04:02 Dose: 2 mg Lorazepam (Ativan Injection) 1 mg IVP EDNOW ONE Stop: 10/22/17 05:08 Last Admin: 10/22/17 05:21 Dose: 1 mg Phenobarbital Sodium (Phenobarbital) 130 mg IVP ONCE ONE Stop: 10/22/17 05:08 Last Admin: 10/22/17 05:35 Dose: 130 mg Departure - Departure Disposition: Home, Routine, Self-Care Clinical Impression: Alcohol withdrawal seizure Qualifiers: Complication of substance-induced condition: with delirium Qualified Code(s): F10.231 - Alcohol dependence with withdrawal delirium Condition: Good Instructions: Alcohol Withdrawal (DC) Additional Instructions: Please return to the emergency department if your worse in any way. Referrals: [facility] [Other] - As per Instructions
[2017-10-22 07:14] LABS: PLATELET COUNT 189 10^3/uL (150-400)
[2017-10-22] MEDS ORDERED: CHLORDIAZEPOXIDE 25MG PREPK#6 BTL TAKEHOME ONE (08:00)
[2017-10-22 08:11] VITALS: BP 130/94
== END 2017-10-22 08:41 | disposition home or self-care (01) ==
LOC: EDUNIT#
DX: F10.231 Alcohol dependence with withdrawal delirium (principal); I10 Essential (primary) hypertension; F17.200 Nicotine dependence, unspecified, uncomplicated
CPT/HCPCS: 96374; G0480; J2060; J2560

== ENCOUNTER 2017-11-12 03:45 | Emergency (ER) | payer MEDICAID, OTHER ==
--- NOTE | 2017-11-12 03:53 | EDPHY ---
H & P Stated Complaint: From [facility] for Librium Time Seen by Provider: 11/12/17 03:53 HPI/ROS: HPI CHIEF COMPLAINT: From the [facility] needs Librium HISTORY OF PRESENT ILLNESS: Very pleasant 47-year-old male, homeless, history of alcoholism daily alcohol use he has been at the [facility]. He sent here by cab checked in the emergency room to receive Librium. He is going to alcohol withdrawal. He denies hallucinating. Denies chest pain or shortness of breath , vital signs are stable upon arrival. Slightly shaky. Past Medical History: Alcoholism daily alcohol use, history of alcohol withdrawal seizure Past Surgical History: Denies recent surgery Social History: Homeless, daily alcohol use typically drinks vodka Family History: Noncontributory ROS REVIEW OF SYSTEMS: A comprehensive 10 point review of systems is otherwise negative aside from elements mentioned in the history of present illness. Exam Constitutional tremulous, anxious, triage nursing summary reviewed, vital signs reviewed, awake/alert. Eyes normal conjunctivae and sclera, EOMI, PERRLA. HENT normal inspection, atraumatic, moist mucus membranes, no epistaxis, neck supple/ no meningismus, no raccoon eyes. Respiratory clear to auscultation bilaterally, normal breath sounds, no respiratory distress, no wheezing. Cardiovascular rate normal, regular rhythm, no murmur, no edema, distal pulses normal. Gastrointestinal soft, non-tender, no rebound, no guarding, normal bowel sounds, no distension, no pulsatile mass. Genitourinary no CVA tenderness. Musculoskeletal no midline vertebral tenderness, full range of motion, no calf swelling, no tenderness of extremities, no meningismus, good pulses, neurovascularly intact. Skin pink, warm, & dry, no rash, skin atraumatic. Neurologic tremulous, anxious awake, alert and oriented x 3, AAOx3, moves all 4 extremities equally, motor intact, sensory intact, CN II-XII intact, normal cerebellar, normal vision, normal speech. Psychiatric normal mood/affect. Heme/Lymph/Immune no lymphadenopathy. Differential Diagnosis: Includes but is not limited to in a particular order alcohol withdrawal, need for medications from the [facility]. Medical Decision Making: Plan for this patient p.o. Librium 50 mg here in emergency room, Librium take-home pack, 1 mg p. O. Ativan here in the emergency room. And then patient can be appropriately dispositioned back to the [facility]. - Personal History Current Tetanus/Diphtheria Vaccine: Unsure Current Tetanus Diphtheria and Acellular Pertussis (TDAP): Unsure Tetanus Vaccine Date: 2011 - Medical/Surgical History Hx Asthma: No Hx Chronic Respiratory Disease: No Hx Diabetes: No Hx Cardiac Disease: No Hx Renal Disease: No Hx Cirrhosis: No Hx Alcoholism: Yes Hx HIV/AIDS: No Hx Splenectomy or Spleen Trauma: No Other PMH: Seizures, ETOH and drug abuse, BIPOLAR,HTN. - Social History Smoking Status: Current every day smoker Constitutional: Initial Vital Signs Temperature (C) 36.7 C 11/12/17 03:48 Heart Rate 94 11/12/17 03:48 Respiratory Rate 17 11/12/17 03:48 Blood Pressure 140/94 H 11/12/17 03:48 O2 Sat (%) 92 11/12/17 03:48 O2 Delivery Mode Room Air Allergies/Adverse Reactions: Penicillins Allergy (Intermediate, Verified 10/22/17 03:55) Home Medications: Medication Instructions Recorded Gabapentin 09/04/17 Librium 09/04/17 OLANZapine 09/04/17 Departure - Departure Disposition: Home, Routine, Self-Care Clinical Impression: Alcohol withdrawal Qualifiers: Complication of substance-induced condition: uncomplicated Qualified Code(s): F10.230 - Alcohol dependence with withdrawal, uncomplicated Condition: Good Instructions: Alcohol Dependence (ED), Alcohol Withdrawal (ED) Referrals: [facility] [Other] - As per Instructions
[2017-11-12] MEDS ORDERED: CHLORDIAZEPOXIDE 25MG PREPK#6 BTL TAKEHOME ONE (03:55)
[2017-11-12] MEDS ORDERED: LORazepam 1 MG TAB PO ONE (03:55)
[2017-11-12] MEDS ORDERED: chlordiazePOXIDE 25 MG CAP PO ONE (03:55)
[2017-11-12 04:43] VITALS: BP 134/91
== END 2017-11-12 04:49 | disposition home or self-care (01) ==
DX: F10.230 Alcohol dependence with withdrawal, uncomplicated (principal); I10 Essential (primary) hypertension; F17.200 Nicotine dependence, unspecified, uncomplicated

== ENCOUNTER 2018-04-22 14:41 | Emergency (ER) | payer MEDICAID ==
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
[2018-04-22 18:52] VITALS: BP 118/83
== END 2018-04-22 18:50 | disposition home or self-care (01) ==
LOC: EDUNIT#
DX: S00.81XA Abrasion of other part of head, initial encounter (principal); M79.641 Pain in right hand; Y04.8XXA Assault by other bodily force, initial encounter; Y92.9 Unspecified place or not applicable; Y93.9 Activity, unspecified; Y99.9 Unspecified external cause status
CPT/HCPCS: L0120

== ENCOUNTER 2018-04-24 06:00 | Emergency (ER) | payer OTHER, MEDICAID ==
[2018-04-24] MEDS ORDERED: HYDROmorphONE/DILAUDID 2 MG/ML INJ IVP ONE (06:06)
[2018-04-24] MEDS ORDERED: ONDANSETRON 4 MG/2 ML VIAL IVP ONE (06:06)
[2018-04-24] MEDS ORDERED: NS 1,000 ML IV ONE ×2 (06:06→07:01)
[2018-04-24] MEDS ORDERED: LORazepam 2 MG/ML INJ IVP ONE ×2 (06:06→06:59)
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
[2018-04-24 06:21] LABS: PLATELET COUNT 246 10^3/uL (150-400)
[2018-04-24] MEDS ORDERED: HYDROmorphONE/DILAUDID 1 MG/ML INJ ONE (06:21)
[2018-04-24 08:33] VITALS: BP 133/87
== END 2018-04-24 08:53 | disposition home or self-care (01) ==
LOC: EDUNIT#
DX: F10.230 Alcohol dependence with withdrawal, uncomplicated (principal); S06.0X0D Concussion without loss of consciousness, subsequent encounter; E86.9 Volume depletion, unspecified; F31.9 Bipolar disorder, unspecified; Z59.0 Homelessness
CPT/HCPCS: 96374; G0480; J1170; J2060; J2405

== ENCOUNTER 2018-05-01 20:52 | Emergency (ER) | payer MEDICAID ==
--- NOTE | 2018-05-01 20:56 | EDPHY ---
H & P Source: Patient - Personal History Tetanus Vaccine Date: 2017 - Medical/Surgical History Hx Asthma: No Hx Chronic Respiratory Disease: No Hx Diabetes: No Hx Cardiac Disease: No Hx Renal Disease: No Hx Cirrhosis: No Hx Alcoholism: Yes Hx HIV/AIDS: No Hx Splenectomy or Spleen Trauma: No Other PMH: Seizures, ETOH and drug abuse, BIPOLAR,HTN. - Social History Smoking Status: Current every day smoker Time Seen by Provider: 05/01/18 20:56 HPI/ROS: HPI CHIEF COMPLAINT: Depression, alcohol intoxication HISTORY OF PRESENT ILLNESS: 48-year-old male, history of polysubstance abuse, alcohol dependency, homelessness, presents emergency room for feeling depressed , and highly intoxicated with alcohol. He arrives to the emergency room by EMS highly intoxicated with alcohol. He states he is very depressed. States he has no will to live. Past Medical History: Seizures, alcohol abuse, alcohol dependency, alcohol draw seizures, bipolar disorder, polysubstance abuse, homeless Past Surgical History: Denies recent surgery Social History: Homeless with daily alcohol use polysubstance abuse. Family History: Denies ROS REVIEW OF SYSTEMS: 10 Systems were reviewed and negative with the exception of the elements mentioned in the history of present illness. Exam Constitutional unkept, disheveled, smells of alcohol, intoxicated, triage nursing summary reviewed, vital signs reviewed, awake/alert. Eyes normal conjunctivae and sclera, EOMI, PERRLA. HENT poor oral hygiene. normal inspection, atraumatic, moist mucus membranes, no epistaxis, neck supple/ no meningismus, no raccoon eyes. Respiratory clear to auscultation bilaterally, normal breath sounds, no respiratory distress, no wheezing. Cardiovascular rate normal, regular rhythm, no murmur, no edema, distal pulses normal. Gastrointestinal soft, non-tender, no rebound, no guarding, normal bowel sounds, no distension, no pulsatile mass. Genitourinary no CVA tenderness. Musculoskeletal no midline vertebral tenderness, full range of motion, no calf swelling, no tenderness of extremities, no meningismus, good pulses, neurovascularly intact. Skin pink, warm, & dry, no rash, skin atraumatic. Neurologic intoxicated. awake, alert and oriented x 3, AAOx3, moves all 4 extremities equally, motor intact, sensory intact, CN II-XII intact, normal cerebellar, normal vision, normal speech. Psychiatric flat affect, depressed Heme/Lymph/Immune no lymphadenopathy. Differential Diagnosis: Includes but is not limited to in a particular order: Alcohol intoxication, mood disorder, depression, bipolar disorder, substance abuse Medical Decision Making: Plan for this patient blood draw for medical clearance. Patient need mental health evaluation after sobering. Voluntary at this time. Re-evaluation: 2223PM: Patient signed over to Dr. Walters Pending Sobriety and re-eval. ( Ran Parmar) 5:00 a.m.- Patient is now awake and alert. He is no longer intoxicated in actually feels mildly shaky like he might begin to withdraw. I have talked to him and he feels remorseful about his drinking last night but does not have any suicidal or homicidal thoughts. [facility] because he has a good support system of several friends there. I will discharge him from the emergency department with Librium. He says he will not drink alcohol while taking this medication. (Krys Walters) Constitutional: Initial Vital Signs Temperature (C) 37.0 C 05/01/18 21:00 Heart Rate 87 05/01/18 21:00 Respiratory Rate 18 05/01/18 21:00 Blood Pressure 134/95 H 05/01/18 21:00 O2 Sat (%) 94 05/01/18 21:00 O2 Delivery Mode Room Air Allergies/Adverse Reactions: Penicillins Allergy (Intermediate, Verified 05/01/18 21:32) Home Medications: Medication Instructions Recorded Gabapentin 09/04/17 Clonidine 04/24/18 Depakote 04/24/18 chlordiazePOXIDE [Librium] 0 mg PO TID 05/01/18 - Data Points Laboratory Results: Laboratory Results 05/01/18 21:14 05/01/18 21:14 05/01/18 05/01/18 05/01/18 21:14 21:14 21:05 WBC 7.86 10^3/uL 10^3/uL (3.80-9.50) RBC 4.50 10^6/uL 10^6/uL (4.40-6.38) Hgb 15.6 g/dL g/dL (13.7-17.5) Hct 45.9 % % (40.0-51.0) MCV 102.0 fL H fL (81.5-99.8) MCH 34.7 pg H pg (27.9-34.1) MCHC 34.0 g/dL g/dL (32.4-36.7) RDW 13.9 % % (11.5-15.2) Plt Count 274 10^3/uL 10^3/uL (150-400) MPV 9.2 fL fL (8.7-11.7) Neut % (Auto) 58.3 % % (39.3-74.2) Lymph % (Auto) 21.0 % % (15.0-45.0) Holmes % (Auto) 12.7 % % (4.5-13.0) Eos % (Auto) 4.8 % % (0.6-7.6) Baso % (Auto) 2.8 % H % (0.3-1.7) Nucleat RBC Rel Count 0.0 % % (0.0-0.2) Absolute Neuts (auto) 4.58 10^3/uL 10^3/uL (1.70-6.50) Absolute Lymphs (auto) 1.65 10^3/uL 10^3/uL (1.00-3.00) Absolute Monos (auto) 1.00 10^3/uL H 10^3/uL (0.30-0.80) Absolute Eos (auto) 0.38 10^3/uL 10^3/uL (0.03-0.40) Absolute Basos (auto) 0.22 10^3/uL H 10^3/uL (0.02-0.10) Absolute Nucleated RBC 0.00 10^3/uL 10^3/uL (0-0.01) Immature Gran % 0.4 % % (0.0-1.1) Immature Gran # 0.03 10^3/uL 10^3/uL (0.00-0.10) Sodium 143 mEq/L mEq/L (135-145) Potassium 3.7 mEq/L mEq/L (3.5-5.2) Chloride 110 mEq/L mEq/L (97-110) Carbon Dioxide 24 mEq/l mEq/l (22-31) Anion Gap 9 mEq/L mEq/L (6-14) BUN 10 mg/dL mg/dL (7-23) Creatinine 0.7 mg/dL mg/dL (0.7-1.3) Estimated GFR > 60 Glucose 71 mg/dL mg/dL (70-100) Calcium 9.3 mg/dL mg/dL (8.5-10.4) Urine Opiates Screen NEGATIVE (NEGATIVE) Urine Barbiturates NEGATIVE (NEGATIVE) Ur Phencyclidine Scrn NEGATIVE (NEGATIVE) Ur Amphetamine Screen NEGATIVE (NEGATIVE) U Benzodiazepines Scrn NON-NEGATIVE H (NEGATIVE) Urine Cocaine Screen NEGATIVE (NEGATIVE) U Marijuana (THC) Screen NON-NEGATIVE H (NEGATIVE) Ethyl Alcohol 396 mg/dL H mg/dL (0-10) Departure - Departure Disposition: Home, Routine, Self-Care Clinical Impression: Depression Qualifiers: Depression Type: unspecified Qualified Code(s): F32.9 - Major depressive disorder, single episode, unspecified Alcohol intoxication Qualifiers: Complication of substance-induced condition: with delirium Qualified Code(s): F10.921 - Alcohol use, unspecified with intoxication delirium Condition: Fair Instructions: Alcohol Intoxication (ED) Referrals: [facility],. [Clinic] - As per Instructions
[2018-05-01 21:25] LABS: PLATELET COUNT 274 10^3/uL (150-400)
[2018-05-02] MEDS ORDERED: CHLORDIAZEPOXIDE 25MG PREPK#6 BTL TAKEHOME ONE (05:00)
[2018-05-02] MEDS ORDERED: chlordiazePOXIDE 25 MG CAP PO ONE (05:00)
[2018-05-02 05:33] VITALS: BP 126/70
== END 2018-05-02 05:33 | disposition home or self-care (01) ==
LOC: EDUNIT#
DX: F32.9 Major depressive disorder, single episode, unspecified (principal); F10.921 Alcohol use, unspecified with intoxication delirium; Z59.0 Homelessness
CPT/HCPCS: 80305; G0480

== ENCOUNTER 2018-05-19 17:24 | Emergency (ER) | payer MEDICAID ==
[2018-05-19] MEDS ORDERED: CHLORDIAZEPOXIDE 25MG PREPK#6 BTL TAKEHOME ONE (17:29)
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
[2018-05-19 17:42] VITALS: BP 111/89
== END 2018-05-19 17:45 | disposition home or self-care (01) ==
LOC: EDUNIT#
DX: F10.920 Alcohol use, unspecified with intoxication, uncomplicated (principal)

== ENCOUNTER 2018-05-24 15:14 | Emergency (ER) | payer MEDICAID ==
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
[2018-05-24 17:11] VITALS: BP 157/88
== END 2018-05-24 17:10 | disposition home or self-care (01) ==
LOC: EDUNIT#
DX: S00.81XA Abrasion of other part of head, initial encounter (principal); F10.920 Alcohol use, unspecified with intoxication, uncomplicated; W19.XXXA Unspecified fall, initial encounter; Y92.9 Unspecified place or not applicable; Y93.9 Activity, unspecified; Y99.9 Unspecified external cause status

== ENCOUNTER 2018-05-30 21:41 | Emergency (ER) | payer MEDICAID, OTHER ==
--- NOTE | 2018-05-30 22:18 | EDPHY ---
H & P Smoking Status: Current every day smoker Time Seen by Provider: 05/30/18 21:43 HPI/ROS: HPI Alcohol intoxication. Homeless. 48-year-old male by ambulance and with [place] police. The patient is to go to [facility] when appropriately sober. This patient was found in front of the [employer] in [place] intoxicated and unable to ambulate. He was brought here by police. He is on an arc hold. No history of trauma or assault. He is familiar to our emergency department and staff for similar presentations. ROS: Constitutional: No fever, no chills. No weakness. Eyes: No discharge. No changes in vision. ENT: No sore throat. No nasal congestion or rhinorrhea. Respiratory: No cough. No shortness of breath. Cardiac: No chest pain, no palpitations. Gastrointestinal: No abdominal pain, no vomiting, no diarrhea. Genitourinary: No hematuria. No dysuria or increased frequency with urination. Musculoskeletal: No back pain. No neck pain. No myalgias or arthralgias. Skin: No rashes. Neurological: No headache. No focal weakness or altered sensation. Past medical history: Seizures, alcohol and drug abuse, homeless, bipolar, hypertension. Social history: As above. Here by himself. Smoker. Physical Exam: General Appearance: Dirty, disheveled. Sleeping, strong odor of alcohol on his breath, he is arousable to voice. Mumbling nonsensically with slurred speech. This patient appears general well-hydrated and well-nourished. Head: Normocephalic atraumatic. Eyes: Pupils equal and round and reactive to light at 3-2 mm bilaterally, no pallor or injection. No lid edema, erythema or injection. ENT, Mouth: Mucous membranes are moist. The pharyngeal tissues are unremarkable. No edema or swelling. No asymmetry suggestive of abscess. No erythema or exudates. No tongue lacerations or abrasions. Respiratory: There are no retractions, lungs are clear to auscultation anteriorly with good air movement bilaterally. Cardiovascular: Regular rate and rhythm. No murmur appreciated. Gastrointestinal: Abdomen is soft and nontender, no masses, bowel sounds normal. No focal tenderness at McBurney's point. No Turner sign. Neurological: Motor sensory function is grossly intact. Cranial nerves are normal. Skin: Warm and dry, no rashes. Musculoskeletal: Neck is supple and nontender. Right hand significant for diffuse swelling over the dorsum of the right hand which some erythema. There is a healing abrasion involving the webspace between the 2nd and 3rd metacarpal phalangeal joints. No purulent drainage or abscess appreciated. No significant warmth on palpation of the dorsum of the right hand. No bony tenderness on palpation of the right hand or axial loading of all of the digits. Right hand is neurovascularly intact. Extremities are symmetrical. All joints range without pain or impingement. Psychiatric: No agitation. No depression. Database: EKG: Imaging: Procedures: Emergency department course: Triage vital signs reviewed and are normal. Patient had an x-ray of the right hand done April 22 of this year. He was seen by Dr. Rafael Wood at that time. Dr. Pineda noted tenderness involving the right hand. His x-rays were negative for fracture, subluxation or dislocation. Clinically, the patient does not present with evidence of a bony injury to the hand. Although there is some mild erythema and edema to the dorsal aspect of the right hand no appreciable warmth. Cellulitis considered. The patient will not be compliant with oral antibiotic administration. 11:00 p.m., the patient is sleeping comfortably. Vital signs have remained normal. Plan is to allow him to further sober in the emergency department. He will then be [facility] when appropriately sober. Care turned over to Dr. Walters at 11:00 p.m.. Differential Diagnosis: The differential diagnosis on this patient includes but is not limited to alcohol intoxication. Head injury, other significant traumatic injury unlikely. This represents a partial list of diagnoses considered. These considerations are based on history, physical exam, past history, reassessment and diagnostic testing. (Fuad Bautista) 5:27 a.m.- Patient is now awake, sober, ambulatory. He will be discharged to [facility]. ( Krys Walters) Constitutional: Initial Vital Signs Temperature (C) 36.4 C 05/30/18 21:50 Heart Rate 86 05/30/18 21:50 Respiratory Rate 16 05/30/18 21:50 Blood Pressure 102/81 H 05/30/18 21:50 O2 Sat (%) 87 L 05/30/18 21:50 O2 Delivery Mode Nasal Cannula O2 (L/minute) 2 Allergies/Adverse Reactions: Penicillins Allergy (Intermediate, Verified 05/30/18 21:56) Home Medications: Medication Instructions Recorded Gabapentin 09/04/17 Clonidine 04/24/18 chlordiazePOXIDE [Librium] 0 mg PO TID 05/01/18 Oxycodone HCl 05/19/18 Departure - Departure Disposition: Law Enforcement/Court/[facility] Clinical Impression: Alcoholic intoxication Condition: Good Instructions: Alcohol Intoxication (ED) Additional Instructions: You have been medically cleared for [facility] Read and follow provided instructions. Follow-up with your [facility] at [facility] when your [facility] from [facility] for evaluation of your right hand. Return to the emergency department for worsening right hand pain or swelling, fever or other serious concerns. Referrals: [facility],. [Clinic] - As per Instructions
[2018-05-31 05:42] VITALS: BP 113/74
== END 2018-05-31 05:42 ==
LOC: EDUNIT#
DX: F10.129 Alcohol abuse with intoxication, unspecified (principal); I10 Essential (primary) hypertension; Z59.0 Homelessness

== ENCOUNTER 2018-06-08 17:00 | Emergency (ER) | payer MEDICAID ==
--- NOTE | 2018-06-08 17:38 | EDPHY ---
H & P Stated Complaint: ON ARC HOLD R HAND SWELLING NEED MED CLEAR Time Seen by Provider: 06/08/18 17:34 HPI/ROS: HPI: This is a 48-year-old male who presents with Chief Complaint: ON ARC HOLD R HAND SWELLING NEED MED CLEAR Location: Right hand, right thumb Quality: Injury, swelling Duration: 3 days Signs and Symptoms: No bleeding, no radiation, no numbness, no weakness, no tingling, no incontinence, + decreased range of motion, + swelling, + pain, no fever Timing: Acute Severity: Moderate Context: Patient is right-hand dominant, presents accompanied by [facility] on [facility] hold, with complaints of accidentally getting his right hand caught in an elevator door approximately 3 days ago and then 2 days ago hitting his right thumb with a hammer while at work. Patient reports that he is unable to flex his right thumb. Patient was seen here in April for right hand injury at that time and x-ray per my chart review shows no acute osseous findings but does show degenerative changes at the 1st metacarpophalangeal joint. Modifying Factors: None Comment: ROS: A comprehensive 10 system review of systems is otherwise negative aside from elements mentioned in the history of present illness. MEDICAL/SURGICAL/SOCIAL HISTORY: Medical history: Seizures, ETOH and drug abuse, BIPOLAR, HTN Surgical history: Denies Social history: Homeless CONSTITUTIONAL: Intoxicated, middle-aged white male who appears older than stated age, awake and alert, no obvious distress HEENT: Atraumatic and normocephalic. NECK: supple, no midline tenderness Cardiovascular: Normal S1/S2, regular rate, regular rhythm, without murmur rub or gallop. PULMONARY/CHEST: Symmetrical and nontender. Clear to auscultation bilaterally. Good air movement. No accessory muscle usage. ABDOMEN: Soft, nondistended, nontender. EXTREMITIES: 2/2 pulses, strength 5/5, right hand shows swelling in the mid hand near the MCP joints of the 3rd 4th and 5th digits. His right thumb is 2 times the size of his left thumb with inability to flex at the DI P joint. No scaphoid tenderness. DIP/PIP/MCP flexion/extension intact with good light touch sensation. no deformities, no clubbing, no cyanosis or edema. NEUROLOGICAL: no focal neuro deficits. GCS 15. Light touch sensation intact. SKIN: Warm and dry, no erythema. no rash. Good capillary refill. Source: Patient Exam Limitations: No limitations - Personal History Current Tetanus Diphtheria and Acellular Pertussis (TDAP): Yes Tetanus Vaccine Date: 2017 - Medical/Surgical History Hx Asthma: No Hx Chronic Respiratory Disease: No Hx Diabetes: No Hx Cardiac Disease: No Hx Renal Disease: No Hx Cirrhosis: No Hx Alcoholism: Yes Hx HIV/AIDS: No Hx Splenectomy or Spleen Trauma: No Other PMH: Seizures, ETOH and drug abuse, BIPOLAR,HTN. - Social History Smoking Status: Current every day smoker Constitutional: Initial Vital Signs Temperature (C) 36.3 C 06/08/18 17:05 Heart Rate 88 06/08/18 17:05 Respiratory Rate 16 06/08/18 17:05 Blood Pressure 134/105 H 06/08/18 17:05 O2 Sat (%) 94 06/08/18 17:05 O2 Delivery Mode Room Air Allergies/Adverse Reactions: Penicillins Allergy (Intermediate, Verified 06/08/18 17:03) Home Medications: Medication Instructions Recorded Gabapentin 09/04/17 Clonidine 04/24/18 chlordiazePOXIDE [Librium] 0 mg PO TID 05/01/18 Oxycodone HCl 05/19/18 Medical Decision Making - Diagnostics Imaging Results: Imaging Impressions Hand X-Ray 06/08/18 17:37 Impression: Comminuted, displaced intra-articular fracture of the proximal phalanx of the right thumb. Procedures: Procedure: Splint placement. A right thumb spica splint was applied. After application of the splint I returned and re-examined the patient. The splint was adequately immobilizing the joint and distal to the splint the patient's circulation and sensation was intact. ED Course/Re-evaluation: Vital signs reviewed and show mildly elevated blood pressure. Right hand x-ray ordered and shows Comminuted, displaced intra-articular fracture of the proximal phalanx of the right thumb. Placed in right thumb spica splint with Ortho/hand follow-up. Given Librium prepack to be [facility] to the [facility]. No signs of neurovascular compromise/tenting of skin/compartment syndrome/ extremities and joints examined above and below area of concern and are neurovascularly intact. This patient was seen under the supervision of my secondary supervising physician. I evaluated care for this patient independently. Discussed this patient with Dr. Cook who did not see the patient. Differential Diagnosis: Differential diagnosis includes but is not limited to fracture, contusion, tendon rupture, sprain. - Data Points Medications Given: Discontinued Medications Chlordiazepoxide (Librium 25 Mg Prepack#6) 1 btl TAKEHOME EDNOW ONE Stop: 06/08/18 18:25 Last Admin: 06/08/18 18:30 Dose: 1 btl Departure - Departure Disposition: Home, Routine, Self-Care Clinical Impression: Alcohol intoxication Qualifiers: Complication of substance-induced condition: uncomplicated Qualified Code(s): F10.920 - Alcohol use, unspecified with intoxication, uncomplicated Fracture of thumb, right, closed Qualifiers: Encounter type: initial encounter Phalanx: proximal Fracture alignment: nondisplaced Qualified Code(s): S62.514A - Nondisplaced fracture of proximal phalanx of right thumb, initial encounter for closed fracture Condition: Good Instructions: Alcohol Intoxication (ED), Abuse of Alcohol (ED), Finger Fracture (ED) Additional Instructions: Wear the splint and keep dry and in place until seen by orthopedic/hand. Take Tylenol 650 mg every 4 hours and/or Ibuprofen 600 mg every 8 hours with food as needed for pain. Apply ice for 30 minutes at a time; 2-3 times per day for the next 1-2 days. Follow up with Orthopedics/Hand in 5-7 days at which time they will evaluate and recommend with you if conservative management versus surgery is indicated. Medically Cleared to be discharged to the [facility] See [facility] for follow-up instructions and prescriptions. Referrals: [facility] 24 Hours [Outside] - As per Instructions Pancho Lewis MD [Medical Doctor] - As per Instructions
[2018-06-08] MEDS ORDERED: CHLORDIAZEPOXIDE 25MG PREPK#6 BTL TAKEHOME ONE (18:24)
[2018-06-08 20:25] VITALS: BP 110/72
== END 2018-06-08 19:30 | disposition home or self-care (01) ==
DX: S62.511A Displaced fracture of proximal phalanx of right thumb, initial encounter for closed fracture (principal); F10.920 Alcohol use, unspecified with intoxication, uncomplicated; I10 Essential (primary) hypertension; W23.0XXA Caught, crushed, jammed, or pinched between moving objects, initial encounter; Y92.89 Other specified places as the place of occurrence of the external cause; Y99.0 Civilian activity done for income or pay; Y93.9 Activity, unspecified; Z59.0 Homelessness
CPT/HCPCS: L3807

== ENCOUNTER 2018-06-13 19:16 | Inpatient (IN) | payer MEDICAID ==
--- NOTE | 2018-06-13 19:55 | EDPHY ---
H & P Stated Complaint: R hand injury 06/08. Now with more swelling and pain. etoh on board. Time Seen by Provider: 06/13/18 19:35 HPI/ROS: Chief Complaint: Hand pain, fever, chills HPI: 48-year-old homeless male presenting complaining of right hand pain. Patient sustained an injury approximately a week ago. Says that he was seen in the hospital and diagnosed with a fracture. He initially had a splint in place but this has since been lost. He was seen again at [facility] was placed in a Velcro splint. He is complaining of worsening pain. He does admit to drinking alcohol heavily today. Denies any new recent injuries. Is complaining of swelling. He is also complaining of increasing fatigue, fevers, chills, shots cough and shortness of breath for the last 2 days. Cough is productive of a greenish sputum. He has had some lightheadedness. General malaise and body aches. No nausea or vomiting. No abdominal pain. ROS: 10 systems were reviewed and were negative except those elements noted in the HPI. Social History: Positive smoking, daily heavy alcohol, currently homeless Family History: non-contributory Physical Exam: Gen: Awake, Alert, slurred speech, unsteady on his feet, tachycardic, febrile HEENT: Nose: no rhinorrhea Eyes: PERRLA, EOMI Mouth: Dry Neck: Supple, no JVD Chest: nontender, decreased lung sounds at the bilateral bases Heart: S1, S2 normal, no murmur Abd: Soft, non-tender, no guarding Back: no CVA tenderness, no midline tenderness Ext: Right hand is edematous, no ecchymosis, no erythema, not warm to touch. Sensations intact in the radial, median and ulnar nerve distribution. Patient is unable to flex or extend his thumb secondary to pain. No abrasions or lacerations. Skin: no rash Neuro: CN II-XII intact, Sensation grossly intact, Strength 5/5 in bilateral upper and lower extremities - Personal History Current Tetanus Diphtheria and Acellular Pertussis (TDAP): Yes Tetanus Vaccine Date: 2017 - Medical/Surgical History Hx Asthma: No Hx Chronic Respiratory Disease: No Hx Diabetes: No Hx Cardiac Disease: No Hx Renal Disease: No Hx Cirrhosis: No Hx Alcoholism: Yes Hx HIV/AIDS: No Hx Splenectomy or Spleen Trauma: No Other PMH: Seizures, ETOH and drug abuse, BIPOLAR,HTN, anxiety. - Social History Smoking Status: Heavy smoker Constitutional: Initial Vital Signs Temperature (C) 38.4 C H 06/13/18 19:31 Heart Rate 124 H 06/13/18 19:31 Respiratory Rate 16 06/13/18 19:31 Blood Pressure 126/83 H 06/13/18 19:31 O2 Sat (%) 90 L 06/13/18 19:31 O2 Delivery Mode Room Air Allergies/Adverse Reactions: Penicillins Allergy (Intermediate, Verified 06/13/18 19:29) Home Medications: Medication Instructions Recorded Gabapentin 09/04/17 Clonidine 04/24/18 Medical Decision Making - Diagnostics Imaging Results: Imaging Impressions Chest X-Ray 06/13/18 19:42 Impression: 1. Hazy increased markings at the right lung base could represent pneumonitis or early pneumonia. ED Course/Re-evaluation: 48-year-old male who is intoxicated and complaining of right hand pain. I have reviewed his emergency department visit to [facility] on the . At that time it was documented a proximal phalanx intra-articular fracture of the thumb. In reading the description of the presentation there is no change in physical exam. What is concerning is that he is tachycardic, hypoxemic and febrile here. He does meet SIRS criteria. I have ordered blood work, chest x- ray, lactate, flu, rule reassess. He is also to be placed in a thumb spica splint. Lactic acid is 3.3. Meets sepsis criteria. Sepsis has been cleared. I have ordered a appropriate cultures. His hand does not appear to be the source of infection at this time. He has got respiratory symptoms hypoxemic. Will dosed with ceftriaxone. Patient is penicillin allergic but states that he has had Keflex many times in the past. Influenza test is running. Will arrange for transfer to [facility] for admission. Chest x-ray results consistent with pneumonia. I have paged the hospitalist. - Data Points Laboratory Results: 06/13/18 06/13/18 19:59 19:56 POC Blood Source VENOUS Patient Temperature 38.4 DEGREES DEGREES POC VBG pH 7.34 (7.31-7.42) POC VBG pCO2 31 mmHg L mmHg (40-44) POC VBG pO2 57 mmHg H mmHg (35-40) POC VBG HCO3 16 mEq/L L mEq/L (22-26) POC VBG Total CO2 17 mEq/L L mEq/L (21-27) POC VBG Base Excess -9.0 mEq/L L mEq/L (-2.5-2.5) POC Mix VBG O2 Sat 85 % H % (65-75) POC Sodium 138 mEq/L mEq/L (135-145) POC Potassium 3.1 mEq/L L mEq/L (3.3-5.0) POC Chloride 105.0 mEq/L mEq/L (97-110) POC Total CO2 18 mEq/L L mEq/L (22-31) POC BUN 6 mg/dL L mg/dL (7-23) POC Creatinine 0.8 mg/dL mg/dL (0.7-1.3) POC Glucose 109 mg/dL H mg/dL (70-100) POC Lactic Acid Camacho 3.3 mmol/L H mmol/L (0.7-2.1) POC Calcium 9.3 mg/dL mg/dL (8.5-10.4) POC Total Bilirubin 0.6 mg/dL mg/dL (0.1-1.4) POC AST 94 IU/L H IU/L (17-59) POC ALT 60 IU/L IU/L (21-72) POC Alk Phosphatase 89 IU/L IU/L (38-126) POC Total Protein 7.9 g/dL g/dL (6.3-8.2) POC Albumin 4.0 g/dL g/dL (3.5-5.0) Medications Given: Sodium Chloride (Ns) 1,800 mls @ 3,600 mls/hr 30 ml/kg infuse over 30 min ( 1800 ml) IV EDNOW ONE PRN Reason: Protocol Stop: 06/13/18 20:28 Last Admin: 06/13/18 20:02 Dose: 1,800 mls Point of Care Test Results: Chemistry 06/13/18 19:59 POC Sodium 138 mEq/L mEq/L (135-145) POC Potassium 3.1 mEq/L L mEq/L (3.3-5.0) POC Chloride 105.0 mEq/L mEq/L (97-110) POC Total CO2 18 mEq/L L mEq/L (22-31) POC BUN 6 mg/dL L mg/dL (7-23) POC Creatinine 0.8 mg/dL mg/dL (0.7-1.3) POC Glucose 109 mg/dL H mg/dL (70-100) POC Calcium 9.3 mg/dL mg/dL (8.5-10.4) POC Total Bilirubin 0.6 mg/dL mg/dL (0.1-1.4) POC AST 94 IU/L H IU/L (17-59) POC ALT 60 IU/L IU/L (21-72) POC Alk Phosphatase 89 IU/L IU/L (38-126) POC Total Protein 7.9 g/dL g/dL (6.3-8.2) POC Albumin 4.0 g/dL g/dL (3.5-5.0) Blood Gas/Lactic Acid-Arterial 06/13/18 19:56 POC Blood Source VENOUS Blood Gas/Lactic Acid-Venous 06/13/18 19:56 POC VBG pH 7.34 (7.31-7.42) POC VBG pCO2 31 mmHg L mmHg (40-44) POC VBG pO2 57 mmHg H mmHg (35-40) POC VBG HCO3 16 mEq/L L mEq/L (22-26) POC VBG Total CO2 17 mEq/L L mEq/L (21-27) POC VBG Base Excess -9.0 mEq/L L mEq/L (-2.5-2.5) POC Mix VBG O2 Sat 85 % H % (65-75) POC Lactic Acid Camacho 3.3 mmol/L H mmol/L (0.7-2.1) Departure - Departure Disposition: [facility] Inpatient Acute Clinical Impression: Sepsis, Pneumonia, Alcoholic intoxication, Thumb fracture Condition: Serious Referrals: NONE *PRIMARY CARE P,. [Primary Care Provider] - As per Instructions
[2018-06-13] MEDS ORDERED: NS 1,000 ML IV ONE ×2 (19:57→23:27)
[2018-06-13] MEDS ORDERED: NS 1,800 ML IV ONE ×2 (19:59)
[2018-06-13] MEDS ORDERED: AZITHROMYCIN 250 MG TAB PO ONE (20:18)
[2018-06-13] MEDS ORDERED: POTASSIUM CL 20 MEQ TAB PO ONE (20:36)
[2018-06-13 21:50] LABS: PLATELET COUNT 272 10^3/uL (150-400)
[2018-06-13 21:54] LABS: INR 0.98 (0.83-1.16); PROTIME(PATIENT) 13.2 SEC (12.0-15.0)
[2018-06-13] MEDS ORDERED: ONDANSETRON 4 MG/2 ML VIAL ONE (22:32)
[2018-06-13] MEDS ORDERED: ALBUTEROL 3 ML DEYVIAL IH PRN (22:40)
[2018-06-13] MEDS ORDERED: ONDANSETRON 4 MG/2 ML VIAL IVP PRN (22:40)
[2018-06-13] MEDS ORDERED: ONDANSETRON DISINTEGRATING 4 MG TAB PO PRN (22:40)
[2018-06-13] MEDS ORDERED: oxyCODONE IR 5 MG TAB PO PRN (22:40)
[2018-06-13] MEDS ORDERED: FLUMAZENIL 0.5 MG/5 ML MDV IVP PRN (22:43)
[2018-06-13] MEDS ORDERED: ONDANSETRON 4 MG/2 ML VIAL IVP ONE (22:45)
[2018-06-13] MEDS: LORazepam 2 MG/ML INJ IVP PRN (23:54)
--- NOTE | 2018-06-14 02:47 | PDGENHP ---
History and Physical - Chief Complaint Hand pain, shortness of breath - History of Present Illness 48 yo M w/ hx of bipolar d/o and ETOH use d/o presents with R hand pain and shortness of breath. The patient presented to the [facility] due to ongoing R hand pain. He fell on his R hand and was seen in the ED on 06/08. He was diagnosed with a R thumb fracture, placed in a splint, and advised to follow up with orthopedics as an outpatient. He has not done this and continues to have hand pain. While in the ED he was noted to be tachycardic, febrile, and hypoxic. On further questioning he describes several days of sore throat, cough, fever, and shortness of breath. A CXR demonstrated a mild RLL opacity. He is being admitted for treatment of likely pneumonia and impending ETOH withdrawal. He drinks 2-3 pints of vodka daily, last at 5 PM on day of admission. Case discussed with Dr. Bhatia; records reviewed and summarized above. History Information - Allergies/Home Medication List Allergies/Adverse Reactions: Penicillins Allergy (Intermediate, Verified 06/13/18 19:29) Home Medications: Gabapentin 09/04/17 [Last Taken Unknown] Clonidine 04/24/18 [Last Taken Unknown] I have personally reviewed and updated: family history, medical history - Past Medical History Additional medical history: Bipolar disorder - Surgical History Additional surgical history: L hand surgery - Family History Additional family history: Asked, denies - Social History Smoking Status: Heavy smoker Review of Systems Review of Systems: ROS: 10pt was reviewed & negative except for what was stated in HPI & below Physical Exam Physical Exam: Temp Pulse Resp BP Pulse Ox 37.8 C 110 H 22 H 120/91 H 90 L 06/13/18 21:55 06/13/18 21:55 06/13/18 21:55 06/13/18 21:55 06/13/18 21:55 Constitutional: uncomfortable, unkempt Eyes: PERRL, EOMI Ears, Nose, Mouth, Throat: moist mucous membranes, no oral mucosal ulcers Cardiovascular: no murmur, rub, or gallop, tachycardia Respiratory: no respiratory distress, rhonchi Gastrointestinal: normoactive bowel sounds, soft, non-tender abdomen Skin: warm, normal color Musculoskeletal: full muscle strength, no muscle tenderness Neurologic: AAOx3, CN II-XII Intact, other (Tremulous, +tongue fasciculations) Lab Data & Imaging Review 06/13/18 19:50 06/13/18 19:50 WBC 21.85 10^3/uL (3.80-9.50) H 06/13/18 19:50 RBC 3.91 10^6/uL (4.40-6.38) L 06/13/18 19:50 Hgb 14.2 g/dL (13.7-17.5) 06/13/18 19:50 Hct 42.3 % (40.0-51.0) 06/13/18 19:50 MCV 108.2 fL (81.5-99.8) H 06/13/18 19:50 MCH 36.3 pg (27.9-34.1) H 06/13/18 19:50 MCHC 33.6 g/dL (32.4-36.7) 06/13/18 19:50 RDW 14.6 % (11.5-15.2) 06/13/18 19:50 Plt Count 272 10^3/uL (150-400) 06/13/18 19:50 MPV 9.5 fL (8.7-11.7) 06/13/18 19:50 Neut % (Auto) 84.6 % (39.3-74.2) H 06/13/18 19:50 Lymph % (Auto) 1.6 % (15.0-45.0) L 06/13/18 19:50 Refugio % (Auto) 12.5 % (4.5-13.0) 06/13/18 19:50 Eos % (Auto) 0.0 % (0.6-7.6) L 06/13/18 19:50 Baso % (Auto) 0.7 % (0.3-1.7) 06/13/18 19:50 Nucleat RBC Rel Count 0.0 % (0.0-0.2) 06/13/18 19:50 Absolute Neuts (auto) 18.49 10^3/uL (1.70-6.50) H 06/13/18 19:50 Absolute Lymphs (auto) 0.35 10^3/uL (1.00-3.00) L 06/13/18 19:50 Absolute Monos (auto) 2.73 10^3/uL (0.30-0.80) H 06/13/18 19:50 Absolute Eos (auto) 0.00 10^3/uL (0.03-0.40) L 06/13/18 19:50 Absolute Basos (auto) 0.15 10^3/uL (0.02-0.10) H 06/13/18 19:50 Absolute Nucleated RBC 0.00 10^3/uL (0-0.01) 06/13/18 19:50 Immature Gran % 0.6 % (0.0-1.1) 06/13/18 19:50 Immature Gran # 0.13 10^3/uL (0.00-0.10) H 06/13/18 19:50 RBC/WBC/PLT Morphology TNP 06/13/18 19:50 Platelet Estimate TNP 06/13/18 19:50 PT 13.2 SEC (12.0-15.0) 06/13/18 19:50 INR 0.98 (0.83-1.16) 06/13/18 19:50 APTT 34.0 SEC (23.0-38.0) 06/13/18 19:50 POC Blood Source VENOUS 06/13/18 19:56 Patient Temperature 38.4 DEGREES 06/13/18 19:56 POC VBG pH 7.34 (7.31-7.42) 06/13/18 19:56 POC VBG pCO2 31 mmHg (40-44) L 06/13/18 19:56 POC VBG pO2 57 mmHg (35-40) H 06/13/18 19:56 POC VBG HCO3 16 mEq/L (22-26) L 06/13/18 19:56 POC VBG Total CO2 17 mEq/L (21-27) L 06/13/18 19:56 POC VBG Base Excess -9.0 mEq/L (-2.5-2.5) L 06/13/18 19:56 POC Mix VBG O2 Sat 85 % (65-75) H 06/13/18 19:56 POC Sodium 138 mEq/L (135-145) 06/13/18 19:59 Sodium 138 mEq/L (135-145) 06/13/18 19:50 POC Potassium 3.1 mEq/L (3.3-5.0) L 06/13/18 19:59 Potassium 3.4 mEq/L (3.5-5.2) L 06/13/18 19:50 POC Chloride 105.0 mEq/L (97-110) 06/13/18 19:59 Chloride 105 mEq/L (97-110) 06/13/18 19:50 Carbon Dioxide 16 mEq/l (22-31) L 06/13/18 19:50 POC Total CO2 18 mEq/L (22-31) L 06/13/18 19:59 Anion Gap 17 mEq/L (6-14) H 06/13/18 19:50 POC BUN 6 mg/dL (7-23) L 06/13/18 19:59 BUN 7 mg/dL (7-23) 06/13/18 19:50 Creatinine 0.8 mg/dL (0.7-1.3) 06/13/18 19:50 POC Creatinine 0.8 mg/dL (0.7-1.3) 06/13/18 19:59 Estimated GFR > 60 06/13/18 19:50 Glucose 93 mg/dL (70-100) 06/13/18 19:50 POC Glucose 109 mg/dL (70-100) H 06/13/18 19:59 POC Lactic Acid Camacho 2.7 mmol/L (0.7-2.1) H 06/13/18 21:13 POC Calcium 9.3 mg/dL (8.5-10.4) 06/13/18 19:59 Calcium 8.7 mg/dL (8.5-10.4) 06/13/18 19:50 POC Total Bilirubin 0.6 mg/dL (0.1-1.4) 06/13/18 19:59 Total Bilirubin 0.5 mg/dL (0.1-1.4) 06/13/18 19:50 POC AST 94 IU/L (17-59) H 06/13/18 19:59 POC ALT 60 IU/L (21-72) 06/13/18 19:59 POC Alk Phosphatase 89 IU/L (38-126) 06/13/18 19:59 POC Total Protein 7.9 g/dL (6.3-8.2) 02/24/19 19:59 POC Albumin 4.0 g/dL (3.5-5.0) 06/13/18 19:59 Procalcitonin 19.35 ng/mL (0.02-0.10) H 06/13/18 23:30 Ethyl Alcohol 290 mg/dL (0-10) H 06/13/18 19:50 Imaging Review: Imaging Impressions Chest X-Ray 06/13/18 19:42 Impression: 1. Hazy increased markings at the right lung base could represent pneumonitis or early pneumonia. Assessment & Plan Assessment: 48 yo M w/ hx of bipolar d/o and ETOH use d/o presents with sepsis due to pneumonia and R hand fracture. Plan: 1. Sepsis - Likely due to RLL pneumonia; sepsis present on admission per 07/22 SIRS criteria. - S/p 30 mL/kg fluid bolus - Blood and sputum cultures pending - Respiratory PCR and procalcitonin ordered - CTX/Azithro for CAP coverage 2. R hand fracture - Fall suffered on 06/08. He was seen in the ED and diagnosed with a comminuted, displaced intra-articular fracture of the proximal phalanx of the R thumb. I doubt this is related to his infectious presentation but merits observation. - Splint in place - Serial examinations to assure not source of infection - Pain control 3. ETOH use disorder with acute withdrawal - Patient already showing signs of early withdrawal after only a few hours since his last drink. He drinks 2-3 pints of vodka daily but expresses a wish to become sober. - CIWA protocol ordered - Daily MVI, thiamine, folate 4. Bipolar disorder - He tells me he lost his medications several days ago. He takes Depakote and gabapentin. - Continue home meds pending reconciliation Diet - Regular Code - Full Ppx - LMWH Dispo - Admit under inpatient status
[2018-06-14] MEDS: LORazepam 2 MG/ML INJ IVP PRN ×10 (03:26→22:13)
[2018-06-14] MEDS: THIAMINE HCL 100 MG TAB PO SCH ×2 (04:05→08:25)
[2018-06-14 06:16] LABS: PLATELET COUNT 219 10^3/uL (150-400)
[2018-06-14] MEDS ORDERED: PNEUMOCOCCAL 0.5ML VACCINE VIAL (PNEUMOVAX 23) IM ONE (08:06)
[2018-06-14] MEDS: ENOXAPARIN 40 MG/0.4 ML SYR SC SCH (08:24)
[2018-06-14] MEDS: AZITHROMYCIN 250 MG TAB PO SCH (08:25)
[2018-06-14] MEDS: MULTIVITAMINS 1 EACH TAB PO SCH (08:25)
[2018-06-14] MEDS: FOLIC ACID 1 MG TAB PO SCH (08:25)
--- NOTE | 2018-06-14 09:22 | PDMN ---
Medical Necessity Medical necessity: [facility] [place] Sepsis, A-3 days: 48 yo w/ sepsis 2nd PNA. Pt hemodynamically unstable - tachy HR 120s, RR 22-24. WBC 21.85. Pt also showing early signs of etoh w/d. IVF, IV antibx started. CIWA protocol initiated. Admit IP status to SDU, anticipate>2MN for ongoing monitoring and tx of the above. Hx bipolar d/o, ETOH abuse
--- NOTE | 2018-06-14 09:37 | ASMTCMCOM ---
CM Note CM Note Notes: Pt is a 48 yo M presents with sepsis, pneumonia, thumb fracture from fall, and ETOH intoxication (2-3 pints vodka daily). Pt is currently homeless. Frequent visits to ED, last admission was in 2015. Chart reviewed for discharge purposes. Unknown linkage in the community. CM to submit referral for [facility]. CM attempted to meet with pt but was sleeping and did not engage with bond underwriter. CM to follow up to provide resources/community linkage prior to discharge. CM to follow. Plan: TBD Date Signed: 06/14/2018 09:36 AM Electronically Signed By:NORMA Ashby
--- NOTE | 2018-06-14 13:52 | HOSPPROG ---
Hospitalist Progress Note Assessment/Plan: 48 yo M w/ hx of bipolar d/o and ETOH use d/o presents with sepsis due to pneumonia and R hand fracture. Plan: 1. Sepsis - Likely due to RLL pneumonia; sepsis present on admission per 07/22 SIRS criteria. - S/p 30 mL/kg fluid bolus - Blood and sputum cultures pending - Respiratory PCR negative on admission, procalcitonin significantly elevated on admission - Continue CTX/Azithro for CAP coverage 2. R hand fracture - Fall suffered on 06/08. He was seen in the ED and diagnosed with a comminuted, displaced intra-articular fracture of the proximal phalanx of the R thumb. I doubt this is related to his infectious presentation but merits observation. - Splint in place - Serial examinations to assure not source of infection - Pain control 3. ETOH use disorder with acute withdrawal - Patient already showing signs of early withdrawal after only a few hours since his last drink. He drinks 2-3 pints of vodka daily but expresses a wish to become sober. - WA protocol ordered - Daily MVI, thiamine, folate 4. Bipolar disorder - He tells me he lost his medications several days ago. He takes Depakote and gabapentin. - Continue home meds Diet - Regular Code - Full Ppx - LMWH Dispo - Pending clinical course Subjective: Patient reports some R handed pain this AM Objective: Vital Signs Temp Pulse Resp BP Pulse Ox 37.3 C 93 16 119/77 94 06/14/18 08:00 06/14/18 13:15 06/14/18 13:15 06/14/18 13:15 06/14/18 13:15 Microbiology 06/13/18 23:30 Respiratory Panel (PCR) - Final Nasal, Sinus - Anaerobic Tube/Swab No Organism Detected By Pcr Laboratory Results 06/14/18 05:48 06/14/18 05:48 06/13/18 06/14/18 06/15/18 05:59 05:59 05:59 Intake Total 3100 Output Total 800 Balance 2300 PT 13.2 SEC (12.0-15.0) 06/13/18 19:50 INR 0.98 (0.83-1.16) 06/13/18 19:50 - Physical Exam Constitutional: chronically ill appearing, unkempt Eyes: PERRL Ears, Nose, Mouth, Throat: moist mucous membranes Cardiovascular: regular rate and rhythym Respiratory: reduced air movement Gastrointestinal: soft, non-tender abdomen Skin: warm Musculoskeletal: full muscle strength Neurologic: AAOx3 Psychiatric: interacting appropriately ICD10 Worksheet Patient Problems: Problems Problem Status Onset Alcoholic intoxication Acute Pneumonia Acute Sepsis Acute Thumb fracture Acute Pneumothorax, right Acute
[2018-06-14] MEDS: NICOTINE 14 MG/24 HR PATCH TD SCH (15:10)
[2018-06-14] MEDS: ACETAMINOPHEN 325 MG TAB PO PRN (18:12)
[2018-06-14] MEDS: GABAPENTIN 300 MG CAP PO SCH (20:49)
[2018-06-15] MEDS: LORazepam 2 MG/ML INJ IVP PRN ×3 (00:34→19:46)
[2018-06-15] MEDS: DEXMEDETOMIDINE HCL 400 MCG in NS 100 ML IV SCH ×3 (01:12→21:18)
[2018-06-15 05:48] LABS: PLATELET COUNT 202 10^3/uL (150-400)
[2018-06-15] MEDS ORDERED: LORazepam 2 MG/ML INJ IVP SCH (06:00)
[2018-06-15] MEDS: NICOTINE 14 MG/24 HR PATCH TD SCH (09:45)
[2018-06-15] MEDS: ENOXAPARIN 40 MG/0.4 ML SYR SC SCH (09:45)
[2018-06-15] MEDS: FOLIC ACID 1 MG TAB PO SCH (09:45)
[2018-06-15] MEDS: GABAPENTIN 300 MG CAP PO SCH ×2 (09:45→20:11)
[2018-06-15] MEDS: MULTIVITAMINS 1 EACH TAB PO SCH (09:45)
[2018-06-15] MEDS: THIAMINE HCL 100 MG TAB PO SCH (09:45)
[2018-06-15] MEDS: AZITHROMYCIN 250 MG TAB PO SCH (09:45)
--- NOTE | 2018-06-15 11:57 | HOSPPROG ---
Hospitalist Progress Note Assessment/Plan: 48 yo M w/ hx of bipolar d/o and ETOH use d/o presents with sepsis due to pneumonia and R hand fracture. Plan: 1. Sepsis - Likely due to RLL pneumonia; sepsis present on admission per 07/22 SIRS criteria. - S/p 30 mL/kg fluid bolus - Blood and sputum cultures pending- NGTD - Respiratory PCR negative on admission, procalcitonin significantly elevated on admission - Continue CTX/Azithro for CAP coverage (Day 3) 2. R hand fracture - Fall suffered on 06/08. He was seen in the ED and diagnosed with a comminuted, displaced intra-articular fracture of the proximal phalanx of the R thumb. I doubt this is related to his infectious presentation but merits observation. - Splint in place - Pain control 3. ETOH use disorder with acute withdrawal - Patient already showing signs of early withdrawal after only a few hours since his last drink. He drinks 2-3 pints of vodka daily but expresses a wish to become sober. - CIWA protocol ordered, started on Precedex overnight as well as scheduled IVP Ativan - Will switch IVP scheduled Ativan to PO Librium QID scheduled, wean Precedex as tolerated - Daily MVI, thiamine, folate 4. Bipolar disorder - He tells me he lost his medications several days ago. He takes Depakote and gabapentin. - Continue home meds Diet - Regular Code - Full Ppx - LMWH Dispo - Pending clinical course Subjective: Patient reports feeling less shaky this AM Objective: Vital Signs Temp Pulse Resp BP Pulse Ox 37.0 C 75 24 H 126/88 H 90 L 06/15/18 08:00 06/15/18 11:44 06/15/18 11:44 06/15/18 11:44 06/15/18 11:44 Microbiology 06/13/18 23:30 Respiratory Panel (PCR) - Final Nasal, Sinus - Anaerobic Tube/Swab No Organism Detected By Pcr Laboratory Results 06/15/18 05:20 06/14/18 05:48 06/14/18 06/15/18 06/16/18 05:59 05:59 05:59 Intake Total 3100 2168.2 Output Total 800 1400 Balance 2300 768.2 PT 13.2 SEC (12.0-15.0) 06/13/18 19:50 INR 0.98 (0.83-1.16) 06/13/18 19:50 - Physical Exam Constitutional: chronically ill appearing, unkempt Eyes: PERRL Ears, Nose, Mouth, Throat: moist mucous membranes Cardiovascular: regular rate and rhythym Respiratory: no respiratory distress, reduced air movement Gastrointestinal: soft, non-tender abdomen Skin: warm Musculoskeletal: full muscle strength Neurologic: AAOx3 Psychiatric: interacting appropriately ICD10 Worksheet Patient Problems: Problems Problem Status Onset Alcoholic intoxication Acute Pneumonia Acute Sepsis Acute Thumb fracture Acute Pneumothorax, right Acute
[2018-06-15] MEDS: chlordiazePOXIDE 25 MG CAP PO SCH ×3 (11:58→20:11)
[2018-06-15] MEDS: ACETAMINOPHEN 325 MG TAB PO PRN (20:18)
[2018-06-16] MEDS: DEXMEDETOMIDINE HCL 400 MCG in NS 100 ML IV SCH ×2 (05:02→18:47)
[2018-06-16] MEDS: ACETAMINOPHEN 325 MG TAB PO PRN ×2 (05:18→20:22)
[2018-06-16] MEDS: chlordiazePOXIDE 25 MG CAP PO SCH ×4 (05:18→20:22)
[2018-06-16] MEDS: ENOXAPARIN 40 MG/0.4 ML SYR SC SCH (08:47)
[2018-06-16] MEDS: AZITHROMYCIN 250 MG TAB PO SCH (08:48)
[2018-06-16] MEDS: MULTIVITAMINS 1 EACH TAB PO SCH (08:48)
[2018-06-16] MEDS: GABAPENTIN 300 MG CAP PO SCH ×2 (08:48→20:22)
[2018-06-16] MEDS: NICOTINE 14 MG/24 HR PATCH TD SCH (08:48)
[2018-06-16] MEDS: FOLIC ACID 1 MG TAB PO SCH (08:48)
[2018-06-16] MEDS: THIAMINE HCL 100 MG TAB PO SCH (08:48)
--- NOTE | 2018-06-16 11:57 | HOSPPROG ---
Hospitalist Progress Note Assessment/Plan: 48 yo M w/ hx of bipolar d/o and ETOH use d/o presents with sepsis due to pneumonia and R hand fracture. Plan: 1. Sepsis - Likely due to RLL pneumonia; sepsis present on admission per 07/22 SIRS criteria. - S/p 30 mL/kg fluid bolus on admission within improvement in HR and LA - Blood and sputum cultures collected- NGTD - Respiratory PCR negative on admission, procalcitonin significantly elevated - Continue CTX/Azithro for CAP coverage (Day 4), continue for 5-7 day course pending clinical improvement 2. R hand fracture - Fall suffered on 06/08. He was seen in the ED and diagnosed with a comminuted, displaced intra-articular fracture of the proximal phalanx of the R thumb. I doubt this is related to his infectious presentation but merits observation. - Splint in place - Pain control 3. ETOH use disorder with acute withdrawal - - CIWA protocol ordered, started on Precedex overnight on 06/14 as well as scheduled IVP Ativan - Switched IVP scheduled Ativan to PO Librium QID scheduled, weaning Precedex as tolerated - Daily MVI, thiamine, folate 4. Bipolar disorder - He tells me he lost his medications several days ago. He takes gabapentin. - Continue home meds Diet - Regular Code - Full Ppx - LMWH Dispo - Pending clinical course, discharge to detox, CM consulted Subjective: Patient reports feeling less tremulous this AM Objective: Vital Signs Temp Pulse Resp BP Pulse Ox 36.4 C 65 25 H 169/99 H 95 06/16/18 08:00 06/16/18 10:00 06/16/18 10:00 06/16/18 08:00 06/16/18 10:00 Laboratory Results 06/15/18 05:20 06/14/18 05:48 06/15/18 06/16/18 06/17/18 05:59 05:59 05:59 Intake Total 2168.2 3100 Output Total 1400 1800 750 Balance 768.2 1300 -750 PT 13.2 SEC (12.0-15.0) 06/13/18 19:50 INR 0.98 (0.83-1.16) 06/13/18 19:50 - Physical Exam Constitutional: chronically ill appearing, unkempt Eyes: PERRL Ears, Nose, Mouth, Throat: moist mucous membranes Cardiovascular: regular rate and rhythym Respiratory: no respiratory distress Gastrointestinal: soft, non-tender abdomen Skin: warm Musculoskeletal: pain with ROM Neurologic: AAOx3 Psychiatric: interacting appropriately ICD10 Worksheet Patient Problems: Problems Problem Status Onset Alcoholic intoxication Acute Pneumonia Acute Sepsis Acute Thumb fracture Acute Pneumothorax, right Acute
[2018-06-16] MEDS: LORazepam 2 MG/ML INJ IVP PRN ×5 (14:48→22:27)
[2018-06-16] MEDS ORDERED: NS 1,000 ML IV SCH (16:30)
[2018-06-17] MEDS: DEXMEDETOMIDINE HCL 400 MCG in NS 100 ML IV SCH (02:37)
[2018-06-17] MEDS: chlordiazePOXIDE 25 MG CAP PO SCH ×4 (05:24→21:37)
[2018-06-17 06:12] LABS: PLATELET COUNT 289 10^3/uL (150-400)
[2018-06-17] MEDS: MULTIVITAMINS 1 EACH TAB PO SCH (09:42)
[2018-06-17] MEDS: GABAPENTIN 300 MG CAP PO SCH ×2 (09:42→21:37)
[2018-06-17] MEDS: AZITHROMYCIN 250 MG TAB PO SCH (09:42)
[2018-06-17] MEDS: THIAMINE HCL 100 MG TAB PO SCH (09:42)
[2018-06-17] MEDS: NICOTINE 14 MG/24 HR PATCH TD SCH (09:42)
[2018-06-17] MEDS: FOLIC ACID 1 MG TAB PO SCH (09:42)
[2018-06-17] MEDS: ENOXAPARIN 40 MG/0.4 ML SYR SC SCH (09:42)
[2018-06-17] MEDS: ACETAMINOPHEN 325 MG TAB PO PRN ×2 (09:53→18:12)
[2018-06-17] MEDS: LORazepam 2 MG/ML INJ IVP PRN ×4 (09:53→22:59)
--- NOTE | 2018-06-17 13:02 | HOSPPROG ---
Hospitalist Progress Note Assessment/Plan: # sepsis - resolving, likely d/t pna # RLL pna - cont rocephin, stop azith today # etOH w/d, hx seizure - overall improving, off precedex today - cont librium po and ativan PRN # bipolar - cont gabapentin # R thumb fracture - i have asked dr carbajal to review his XR # dispo - to med surg Subjective: still with R thumb pain Objective: Vital Signs Temp Pulse Resp BP Pulse Ox 36.3 C 101 H 12 111/75 91 L 06/17/18 12:00 06/17/18 12:00 06/17/18 12:00 06/17/18 12:00 06/17/18 12:00 Laboratory Results 06/17/18 05:29 06/17/18 05:29 06/16/18 06/17/18 06/18/18 05:59 05:59 05:59 Intake Total 3100 2568 200 Output Total 1800 3050 700 Balance 1300 -482 -500 PT 13.2 SEC (12.0-15.0) 06/13/18 19:50 INR 0.98 (0.83-1.16) 06/13/18 19:50 chart reviewed XR reviewed - Physical Exam Constitutional: appears nourished, uncomfortable Cardiovascular: regular rate and rhythym, no murmur, rub, or gallop Respiratory: no respiratory distress, no rales or rhonchi Gastrointestinal: normoactive bowel sounds, soft, non-tender abdomen, no palpable masses ICD10 Worksheet Patient Problems: Problems Problem Status Onset Alcoholic intoxication Acute Pneumonia Acute Sepsis Acute Thumb fracture Acute Pneumothorax, right Acute
[2018-06-17] MEDS ORDERED: CALCIUM CARBONATE 500 MG CHEWABLE TAB PO PRN (22:48)
[2018-06-18] MEDS: ACETAMINOPHEN 325 MG TAB PO PRN ×3 (00:35→17:02)
[2018-06-18] MEDS: LORazepam 2 MG/ML INJ IVP PRN ×5 (02:11→17:03)
[2018-06-18] MEDS: GUAIFENESIN/DM 10 ML UDCUP PO PRN (02:18)
[2018-06-18] MEDS: NICOTINE 14 MG/24 HR PATCH TD SCH (08:40)
[2018-06-18] MEDS: ENOXAPARIN 40 MG/0.4 ML SYR SC SCH (08:48)
[2018-06-18] MEDS: FOLIC ACID 1 MG TAB PO SCH (08:49)
[2018-06-18] MEDS: MULTIVITAMINS 1 EACH TAB PO SCH (08:49)
[2018-06-18] MEDS: chlordiazePOXIDE 25 MG CAP PO SCH ×3 (08:49→19:58)
[2018-06-18] MEDS: THIAMINE HCL 100 MG TAB PO SCH (08:49)
[2018-06-18] MEDS: GABAPENTIN 300 MG CAP PO SCH ×2 (08:50→19:57)
--- NOTE | 2018-06-18 13:14 | HOSPPROG ---
Hospitalist Progress Note Assessment/Plan: 48 y male with pain. First encounter, chart reviewed. D/W Dr Davis. # sepsis - resolving, likely d/t pna # RLL pna - cont rocephin #Tachy - likely related to withdrawl -cont to follow -evaluate further if not improved # etOH w/d, hx seizure - overall improving, off precedex - cont librium po and ativan PRN # bipolar - cont gabapentin # R thumb fracture - thumb splint ordered # dispo - unclear, D/W CM Subjective: Feeling a bit better. C/O thumb pain. No other issues. Objective: Vital Signs Temp Pulse Resp BP Pulse Ox 36.7 C 107 H 26 H 130/96 H 92 06/18/18 12:00 06/18/18 12:00 06/18/18 12:00 06/18/18 12:00 06/18/18 12:00 Laboratory Results 06/17/18 05:29 06/17/18 05:29 06/17/18 06/18/18 06/19/18 05:59 05:59 05:59 Intake Total 2568 750 Output Total 3050 1150 Balance -482 -400 PT 13.2 SEC (12.0-15.0) 06/13/18 19:50 INR 0.98 (0.83-1.16) 06/13/18 19:50 - Physical Exam Constitutional: appears nourished, chronically ill appearing, unkempt Eyes: PERRL, anicteric sclera, EOMI Ears, Nose, Mouth, Throat: moist mucous membranes, hearing normal, ears appear normal Cardiovascular: tachycardia, No JVD, No edema Respiratory: no respiratory distress, no rales or rhonchi, reduced air movement Gastrointestinal: normoactive bowel sounds, No tenderness, No ascites Skin: warm, normal color, No mottled Musculoskeletal: normal joint ROM, no joint effusions, joint tenderness, generalized weakness Neurologic: AAOx3 Psychiatric: interacting appropriately, not anxious, not encephalopathic ICD10 Worksheet Patient Problems: Problems Problem Status Onset Pneumothorax, right Acute Sepsis Acute Pneumonia Acute Alcoholic intoxication Acute Thumb fracture Acute
--- NOTE | 2018-06-18 15:34 | ASMTCMCOM ---
CM Note CM Note Notes: Pts case discussed w/ Jammie Carroll NP. Pt is a [facility] client. CM attempted ot meet w/ pt but he was sleeping. CM left pt w/ ETOH resources. CM able to assist in making a assisted reservation when medically stable. CM to follow. Per Demi - [facility] prior note states that pt was barred from their services for 60 days. Confirmed w/ [facility] that it has been lifted and he is welcome to use their services again. Date Signed: 06/18/2018 03:33 PM Electronically Signed By:NORMA Zavala
[2018-06-19] MEDS: LORazepam 2 MG/ML INJ IVP PRN ×5 (00:08→20:31)
[2018-06-19] MEDS: GUAIFENESIN/DM 10 ML UDCUP PO PRN (00:08)
[2018-06-19] MEDS: ENOXAPARIN 40 MG/0.4 ML SYR SC SCH (08:52)
[2018-06-19] MEDS: chlordiazePOXIDE 25 MG CAP PO SCH (08:53)
[2018-06-19] MEDS: MULTIVITAMINS 1 EACH TAB PO SCH (08:53)
[2018-06-19] MEDS: FOLIC ACID 1 MG TAB PO SCH (08:53)
[2018-06-19] MEDS: NICOTINE 14 MG/24 HR PATCH TD SCH (08:53)
[2018-06-19] MEDS: GABAPENTIN 300 MG CAP PO SCH ×2 (08:53→20:31)
[2018-06-19] MEDS: THIAMINE HCL 100 MG TAB PO SCH (08:53)
[2018-06-19] MEDS: ACETAMINOPHEN 325 MG TAB PO PRN ×2 (09:05→20:31)
[2018-06-19] MEDS ORDERED: chlordiazePOXIDE 25 MG CAP PO PRN (13:42)
--- NOTE | 2018-06-19 13:43 | HOSPPROG ---
Hospitalist Progress Note Assessment/Plan: 48 y male with pain. # sepsis - resolved, likely d/t pna # RLL pna - D#7/ rocephin #Tachy - likely related to withdrawl -cont to follow -evaluate further if not improved # etOH w/d, hx seizure -overall improving, off precedex - cont librium prn and ativan PRN # bipolar - cont gabapentin # R thumb fracture - thumb splint # dispo - 1-2 days - D/W CM Subjective: Feeling better today. Still weak. No other issues. Objective: Vital Signs Temp Pulse Resp BP Pulse Ox 36.5 C 124 H 16 106/78 96 06/19/18 08:00 06/19/18 11:28 06/19/18 11:28 06/19/18 11:28 06/19/18 11:28 Laboratory Results 06/17/18 05:29 06/17/18 05:29 06/18/18 06/19/18 06/20/18 05:59 05:59 05:59 Intake Total 750 1275 Output Total 1150 Balance -400 1275 PT 13.2 SEC (12.0-15.0) 06/13/18 19:50 INR 0.98 (0.83-1.16) 06/13/18 19:50 - Physical Exam Constitutional: chronically ill appearing, cachectic Eyes: PERRL, anicteric sclera Ears, Nose, Mouth, Throat: moist mucous membranes, hearing normal Cardiovascular: tachycardia, No JVD, No edema Respiratory: no respiratory distress, reduced air movement Gastrointestinal: No tenderness, No ascites Skin: warm, normal color Musculoskeletal: no joint effusions, generalized weakness Neurologic: AAOx3 Psychiatric: not encephalopathic, poor judgement ICD10 Worksheet Patient Problems: Problems Problem Status Onset Pneumothorax, right Acute Sepsis Acute Pneumonia Acute Alcoholic intoxication Acute Thumb fracture Acute
[2018-06-20] MEDS: MULTIVITAMINS 1 EACH TAB PO SCH (07:51)
[2018-06-20] MEDS: THIAMINE HCL 100 MG TAB PO SCH (07:51)
[2018-06-20] MEDS: FOLIC ACID 1 MG TAB PO SCH (07:52)
[2018-06-20] MEDS: ENOXAPARIN 40 MG/0.4 ML SYR SC SCH (07:52)
[2018-06-20] MEDS: GABAPENTIN 300 MG CAP PO SCH (07:52)
[2018-06-20] MEDS: NICOTINE 14 MG/24 HR PATCH TD SCH (07:53)
[2018-06-20] MEDS: LORazepam 2 MG/ML INJ IVP PRN (08:03)
[2018-06-20] MEDS: ACETAMINOPHEN 325 MG TAB PO PRN (08:03)
[2018-06-20 08:24] VITALS: BP 130/94
--- NOTE | 2018-06-20 12:14 | ASDISCHSUM ---
Discharge Information Plan Status:Homeless/Jail Medically Cleared to Leave:06/19/2018 Discharge Date:06/20/2018 12:01 PM D/C Disposition:Stre[facility] (Homeless) ADT D/C Disposition:Home, Routine, Self-Care Projected Discharge Date:06/20/2018 12:00 AM Transportation at D/C:Medicaid Transportation Discharge Delay Reason: Follow-Up Date:06/20/2018 12:00 AM Discharge Slot:1 - 8:01 am - 12:00 noon Final Diagnosis:Sepsis, RLL pneumonia Placement Information Patient Contact Information Contact Name:EMIR Relationship:Other Address: Work Phone: City: [facility] Phone: State/Zip Code: Email: Financial Information Financial Class:Medicaid Primary Plan Desc[place] Primary Plan Number:[id number] Secondary Plan Desc: Secondary Plan Number: Assessment Information [facility] CM Progress Note CM Note CM Note Notes: Pt is a 48 yo M presents with sepsis, pneumonia, thumb fracture from fall, and ETOH intoxication (2-3 pints vodka daily). Pt is currently homeless. Frequent visits to ED, last admission was in 2015. Chart reviewed for discharge purposes. Unknown linkage in the community. CM to submit referral for [facility]. CM attempted to meet with pt but was sleeping and did not engage with conventional mortgage underwriter. CM to follow up to provide resources/community linkage prior to discharge. CM to follow. Plan: TBD Date Signed: 06/14/2018 09:36 AM Electronically Signed By:NORMA Ashby [facility] CM Progress Note CM Note CM Note Notes: Pts case discussed w/ Jammie Carroll NP. Pt is a [facility] client. CM attempted ot meet w/ pt but he was sleeping. CM left pt w/ ETOH resources. CM able to assist in making a [facility] reservation when medically stable. CM to follow. Per Demi - A prior note states that pt was barred from their services for 60 days. Confirmed w/ [facility] that it has been lifted and he is welcome to use their services again. Date Signed: 06/18/2018 03:33 PM Electronically Signed By:NORMA Zavala Intervention Information
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
--- NOTE | 2018-06-20 21:12 | GDS ---
[f rep st] DISCHARGE SUMMARY DISCHARGE DIAGNOSES: 1. Sepsis. 2. Right lower extremity pneumonia. 3. Tachycardia. 4. Alcohol withdrawal. 5. Bipolar disorder. 6. Right thumb fracture. PHYSICAL EXAM: GENERAL: The patient is alert. VITAL SIGNS: Afebrile at 35.7, pulse 88, respirator y rate 16, blood pressure is 130/94, he is saturating 95% on room air. I have seen and evaluated the patient on the day of discharge. HOSPITAL COURSE: The patient is a 48-year-old male who presented to the hospital with complaints of shortness of breath. He was evaluated and diagnosed with: 1. Right lower extremity pneumonia. He received 7 days of IV Rocephin during this hospitalization a nd his pneumonia is considered treated and resolved. 2. Sepsis. This is in the setting of acute community-acquired pneumonia. This has resolved. 3. Tachycardia. This is multifactorial in the setting of alcohol withdrawal, as well as acute infec tion. He is normal sinus rhythm today at the time of disposition. 4. Alcohol withdrawal. The patient was placed on Precedex during this hospitalization. His conditi on has improved. He has no further signs of withdrawal. Counseling and cessation have been provided for him during this hospitalization. 5. Bipolar disorder. This is stable. 6. Right thumb fracture. The patient does have outpatient set up and management of his thumb alread y arranged prior to disposition. DISPOSITION: He will be discharged to the senior living. Case Management has been involved and have made arrangements for him. DISCHARGE MEDICATIONS: Please refer to EMR form. I have not provided prescriptions for the patient at the time of disposition. Followup will be with his primary care physician at [facility]. TIME SPENT WITH PATIENT: I spent greater than 35 minutes in the care, coordination, and management o f the patient's disposition. /[id number]/MODL
== END 2018-06-20 12:01 | disposition home or self-care (01) | DRG 720 ==
LOC: CED 19:16 → CEDHOLD 20:19 → F2N 22:31 → F3E 06-17 14:04
PROVIDERS: ADMIT Student in an Organized Health Care Education/Training Program; ATTEND Emergency Medicine
DX: A41.9 Sepsis, unspecified organism (principal); J18.1 Lobar pneumonia, unspecified organism; F10.239 Alcohol dependence with withdrawal, unspecified; F31.9 Bipolar disorder, unspecified; E86.9 Volume depletion, unspecified; S62.511A Displaced fracture of proximal phalanx of right thumb, initial encounter for closed fracture; W19.XXXA Unspecified fall, initial encounter; Z88.0 Allergy status to penicillin; Z72.0 Tobacco use; Y90.8 Blood alcohol level of 240 mg/100 ml or more; F10.229 Alcohol dependence with intoxication, unspecified
CPT/HCPCS: 71046-PO; 80053-ER; 83605-ER; 96361-ER; 96365; 97112-GP; 97116-GP; 97161-GP; 97165-GO; 97530-GO; 97535-GO; G0009; G0480; J0696; J1650; J2060; J2405

== ENCOUNTER 2018-06-22 23:55 | Emergency (ER) | payer MEDICAID ==
[2018-06-23 00:05] VITALS: BP 133/100
[2018-06-23] MEDS ORDERED: CHLORDIAZEPOXIDE 25MG PREPK#6 BTL TAKEHOME ONE (00:21)
--- NOTE | 2018-06-23 00:21 | EDPHY ---
H & P Stated Complaint: ETOH Time Seen by Provider: 06/23/18 00:00 HPI/ROS: Chief Complaint: Hand pain, alcohol intoxication HPI: 48-year-old male sustained a thumb fracture approximately 3 weeks ago, in a Velcro splint. I saw him a on the of last month and admitted him for sepsis secondary to right lower lobe pneumonia. He was discharged several days ago. Patient has been drinking alcohol again tonight. States he fell on his right thumb. He has been having persistent pain. He has not followed up with orthopedic surgeon. Also complaining of some left shoulder pain. Admits to drinking heavily tonight. No fevers or chills. No cough. No nausea or vomiting. ROS: 10 systems were reviewed and were negative except those elements noted in the HPI. PMH: Thumb fracture, pneumonia, chronic alcohol abuse Social History: Positive smoking, daily heavy alcohol, currently homeless Family History: non-contributory Physical Exam: Gen: Awake, Alert, No Distress, slurred speech, smells of alcohol HEENT: Nose: no rhinorrhea Eyes: PERRLA, EOMI Mouth: Moist mucosa Neck: Supple, no JVD Chest: nontender, lungs clear to auscultation Heart: S1, S2 normal, no murmur Abd: Soft, non-tender, no guarding Back: no CVA tenderness, no midline tenderness Ext: no edema, right hand in Velcro thumb spica splint. Normal perfusion, normal capillary refill. Sensation intact. No swelling. Left shoulder is nontender, full range of motion without pain. Skin: no rash Neuro: CN II-XII intact, Sensation grossly intact, Strength 5/5 in bilateral upper and lower extremities - Personal History Tetanus Vaccine Date: 2017 - Medical/Surgical History Hx Asthma: No Hx Chronic Respiratory Disease: No Hx Diabetes: No Hx Cardiac Disease: No Hx Renal Disease: No Hx Cirrhosis: No Hx Alcoholism: Yes Hx HIV/AIDS: No Hx Splenectomy or Spleen Trauma: No Other PMH: Seizures, ETOH and drug abuse, BIPOLAR,HTN, anxiety. - Social History Smoking Status: Heavy smoker Constitutional: Initial Vital Signs Temperature (C) 36.6 C 06/23/18 00:04 Heart Rate 94 06/23/18 00:04 Respiratory Rate 16 06/23/18 00:04 Blood Pressure 133/100 H 06/23/18 00:04 O2 Sat (%) 95 03/06/19 00:04 O2 Delivery Mode Room Air Allergies/Adverse Reactions: Penicillins Allergy (Intermediate, Verified 06/14/18 09:39) Rash Home Medications: Medication Instructions Recorded Gabapentin [Neurontin 300 MG (*)] 600 mg PO BID 09/04/17 clonIDINE [Catapres (*)] 0.1 mg PO DAILY PRN 04/24/18 Acetaminophen [Tylenol 325mg (*)] 650 mg PO Q4HRS PRN tab 06/20/18 Calcium Carbonate [Tums 500MG (*)] 500 mg PO TID PRN tab.chew 06/20/18 Folic Acid [Folic Acid 1 MG (*)] 1 mg PO DAILY tab 06/20/18 Multivitamins [Multivitamin (*)] 1 each PO DAILY tab 06/20/18 Thiamine HCl [Vitamin B-1] 100 mg PO DAILY tab 06/20/18 Medical Decision Making ED Course/Re-evaluation: 48-year-old intoxicated male presenting with hand pain with a known fracture. He has not followed up. There is no new swelling or deformity. Perfusion is normal. Oxygen saturations and exam are unremarkable. No acute medical process at this time. Patient is medically cleared for the [facility]. - Data Points Medications Given: Discontinued Medications Chlordiazepoxide (Librium 25 Mg Prepack#6) 1 btl TAKEAUSTERLITZ EDNOW ONE Stop: 06/23/18 00:22 Last Admin: 06/23/18 00:34 Dose: 1 btl Departure - Departure Disposition: Home, Routine, Self-Care Clinical Impression: Alcohol intoxication Condition: Good Instructions: Chlordiazepoxide (By mouth), Alcohol Intoxication (ED) Referrals: NONE *PRIMARY CARE P,. [Primary Care Provider] - As per Instructions
== END 2018-06-23 00:38 | disposition home or self-care (01) ==
LOC: EDUNIT#
DX: S69.91XA Unspecified injury of right wrist, hand and finger(s), initial encounter (principal); F10.920 Alcohol use, unspecified with intoxication, uncomplicated; M25.511 Pain in right shoulder; W19.XXXA Unspecified fall, initial encounter; Y92.9 Unspecified place or not applicable; Y99.9 Unspecified external cause status; Y93.9 Activity, unspecified

== ENCOUNTER 2018-06-27 22:08 | Emergency (ER) | payer OTHER, MEDICAID ==
[2018-06-27] MEDS ORDERED: NS 1,000 ML IV ONE (22:18)
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
[2018-06-27] MEDS ORDERED: ACETAMINOPHEN 325 MG TAB PO PRN (22:26)
[2018-06-27] MEDS ORDERED: ONDANSETRON DISINTEGRATING 4 MG TAB PO PRN (22:26)
[2018-06-27] MEDS ORDERED: ONDANSETRON 4 MG/2 ML VIAL IVP PRN (22:26)
[2018-06-27] MEDS ORDERED: NALOXONE HCL 0.4 MG/ML INJ IVP PRN (22:26)
[2018-06-27] MEDS ORDERED: HYDROCODONE/APAP 5/325 TAB PO PRN (22:26)
[2018-06-27 22:36] LABS: INR 0.99 (0.83-1.16); PROTIME(PATIENT) 12.7 SEC (12.0-15.0)
[2018-06-27] MEDS ORDERED: NS 1,000 ML IV SCH (23:00)
[2018-06-27] MEDS ORDERED: HYDROGEN PEROXIDE 236 ML BOTTLE TP ONE (23:01)
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
[2018-06-28] MEDS ORDERED: CALCIUM CARBONATE 500 MG CHEWABLE TAB PO PRN (07:17)
[2018-06-28] MEDS ORDERED: ACETAMINOPHEN 325 MG TAB PO PRN (07:17)
[2018-06-28] MEDS ORDERED: GABAPENTIN 300 MG CAP PO SCH (09:00)
[2018-06-28] MEDS ORDERED: MULTIVITAMINS 1 EACH TAB PO SCH (09:00)
[2018-06-28] MEDS ORDERED: THIAMINE HCL 100 MG TAB PO SCH (09:00)
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
[2018-06-28 09:29] VITALS: BP 146/91
--- NOTE | 2018-06-28 10:10 | ASMTCMCOM ---
CM Note CM Note Notes: Pt. requested information for alcohol treatment (specifically Vivitrol). Pt provided information for community resources and given a sweatshirt. CM available as needed. Date Signed: 06/28/2018 10:09 AM Electronically Signed By:January Wong LCSW
--- NOTE | 2018-06-28 10:14 | ASMTLACE ---
MICHAELE Length of stay for Answers: 1 day current admission Acuity / Level of Answers: No Care: Did the patient have an inpatient admission? # of Emergency department Answers: 9-12 visits in the last 6 months Social determinants Answers: History of substance abuse (ETOH, street drugs, prescription drugs, etc.) Homelessness (street, correction) Lack of community resources and/or lack of social support (no pcp, lives alone, transportation, dom d) Score: 16 Date Signed: 06/28/2018 10:13 AM Electronically Signed By:Januayr Wong LCSW
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
== END 2018-06-28 09:34 | disposition home or self-care (01) ==
LOC: EDUNIT# → UNDOADMOB 22:26 → UNDODISOB 06-28 10:00
DX: S06.0X0A Concussion without loss of consciousness, initial encounter (principal); S12.040A Displaced lateral mass fracture of first cervical vertebra, initial encounter for closed fracture; S00.90XA Unspecified superficial injury of unspecified part of head, initial encounter; F10.920 Alcohol use, unspecified with intoxication, uncomplicated; E86.9 Volume depletion, unspecified; V03.19XA Pedestrian with other conveyance injured in collision with car, pick-up truck or van in traffic accident, initial encounter
CPT/HCPCS: 80305; G0480; L0172

== ENCOUNTER 2018-07-02 22:46 | Emergency (ER) | payer MEDICAID ==
[2018-07-02] MEDS ORDERED: NS 1,000 ML IV ONE (22:50)
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
[2018-07-02 23:49] LABS: PLATELET COUNT 356 10^3/uL (150-400)
[2018-07-03 05:40] VITALS: BP 113/75
== END 2018-07-03 05:40 | disposition home or self-care (01) ==
LOC: EDUNIT#
DX: F10.920 Alcohol use, unspecified with intoxication, uncomplicated (principal); G40.409 Other generalized epilepsy and epileptic syndromes, not intractable, without status epilepticus; E86.9 Volume depletion, unspecified; I10 Essential (primary) hypertension; F41.9 Anxiety disorder, unspecified; F31.9 Bipolar disorder, unspecified; Z59.0 Homelessness; Z88.0 Allergy status to penicillin
CPT/HCPCS: G0480

== ENCOUNTER 2018-07-18 08:40 | Emergency (ER) | payer OTHER, MEDICAID ==
[2018-07-18] MEDS ORDERED: GABAPENTIN 300 MG CAP PO ONE (09:06)
[2018-07-18] MEDS ORDERED: chlordiazePOXIDE 25 MG CAP PO ONE (09:06)
[2018-07-18] MEDS ORDERED: NS 1,000 ML IV ONE (09:06)
[2018-07-18] MEDS ORDERED: LORazepam 2 MG/ML INJ IVP ONE (09:06)
--- NOTE | 2018-07-18 09:06 | EDPHY ---
H & P Stated Complaint: possible siezure Time Seen by Provider: 07/18/18 09:01 HPI/ROS: HPI: This is a 48-year-old male who presents with Chief Complaint: Possible seizure activity Location: Body Quality: Seizure-like activity Duration: Prior to arrival Signs and Symptoms: no fever, no nausea, no vomiting, no photophobia, no noise sensitivity, no neck stiffness, no ear pain, no tinnitus, no nasal congestion, no sinus pressure, no weakness, no radiation, no aura Timing: Resolved Severity: Moderate Context: Patient is homeless, well-known to the emergency room, alcoholism and drug abuse, seizure disorder secondary to alcohol withdrawal, presents via EMS as a bystander saw him with General tonic seizure [place] 1-2 hours prior to arrival to the emergency room. EMS reports that the bystander said activity lasted approximately 15-30 seconds. No incontinence/tongue biting noted. Patient reports to me that he was walking to the bus depot and felt "funny." He did drink alcohol yesterday and believes it was approximately 8-12 hours ago. Patient did not take his gabapentin or clonidine today but he did take it yesterday. Patient has an appointment at the [facility] on Thursday to discuss sobriety and medication management. Patient reports that "I feel fine at this time." He does complain of mild anxiety but relates "this is normal for me and I do not like hospitals. " He denies fever, cough, nausea, vomiting, headaches, abdominal pain, neck stiffness. Patient reports that he does have prescriptions for clonidine and gabapentin in his bag. Modifying Factors: None Comment: ROS: A comprehensive 10 system review of systems is otherwise negative aside from elements mentioned in the history of present illness. MEDICAL/SURGICAL/SOCIAL HISTORY: Medical history: Seizures, ETOH and drug abuse, BIPOLAR,HTN, anxiety, history of cervical 1 and cervical 2 fracture Surgical history: Denies Social history: Homeless. Heavy Tobacco user. Daily alcohol user/alcohol abuse. Family history noncontributory. CONSTITUTIONAL: Polite and cooperative, tidy, middle-aged white male, talkative and not postictal, awake and alert, no obvious distress HEENT: Atraumatic and normocephalic, PERRL, EOMI. Nares patent; no rhinorrhea; no nasal mucosal edema. Tympanic membranes clear. Oropharynx clear, no exudate and moist pink mucosa. No tongue trauma noted. Airway patent. No lymphadenopathy. No meningismus. Cardiovascular: Normal S1/S2, regular rate, regular rhythm, without murmur rub or gallop. PULMONARY/CHEST: Symmetrical and nontender. Clear to auscultation bilaterally. Good air movement. No accessory muscle usage. ABDOMEN: Soft, nondistended, nontender, no rebound, no guarding, no peritoneal signs, no masses or organomegaly. No CVAT. EXTREMITIES: 2/2 pulses, strength 5/5, no deformities, no clubbing, no cyanosis or edema. NEUROLOGICAL: no focal neuro deficits. GCS 15. Cranial nerves 2-12 grossly intact. Speech clear. No tremors noted. No seizure activity noted. SKIN: Warm and dry, no erythema. no rash. Good capillary refill. Source: Patient, RN/MD, EMS, Old records Exam Limitations: No limitations - Personal History Current Tetanus/Diphtheria Vaccine: Yes Current Tetanus Diphtheria and Acellular Pertussis (TDAP): Yes Tetanus Vaccine Date: 2017 - Medical/Surgical History Hx Asthma: No Hx Chronic Respiratory Disease: No Hx Diabetes: No Hx Cardiac Disease: No Hx Renal Disease: No Hx Cirrhosis: No Hx Alcoholism: Yes Hx HIV/AIDS: No Hx Splenectomy or Spleen Trauma: No Other PMH: Seizures, ETOH and drug abuse, BIPOLAR,HTN, anxiety. - Social History Smoking Status: Heavy smoker Constitutional: Initial Vital Signs Temperature (C) 37.1 C 07/18/18 08:40 Heart Rate 91 07/18/18 08:40 Respiratory Rate 20 07/18/18 08:40 Blood Pressure 139/104 H 07/18/18 08:40 O2 Sat (%) 94 07/18/18 08:40 O2 Delivery Mode Room Air Allergies/Adverse Reactions: Penicillins Allergy (Intermediate, Verified 07/18/18 08:47) Rash Home Medications: Medication Instructions Recorded Acetaminophen [Tylenol 325mg (*)] 650 mg PO Q4HRS PRN tab 06/28/18 Calcium Carbonate [Tums 500MG (*)] 500 mg PO TID PRN tab.chew 06/28/18 Gabapentin [Neurontin 300 MG (*)] 600 mg PO BID #90 cap 06/28/18 Hydrocodone/APAP 5/325 [[place] 1 - 2 tab PO Q4HRS PRN #10 tab 06/28/18 5/325 (*)] Multivitamins [Multivitamin (*)] 1 each PO DAILY tab 06/28/18 Thiamine HCl [Vitamin B-1] 100 mg PO DAILY tab 06/28/18 clonIDINE [Catapres (*)] 0.1 mg PO DAILY PRN #30 tab 06/28/18 Medical Decision Making ED Course/Re-evaluation: Vital signs reviewed and show mildly elevated blood pressure upon arrival. Placed on cardiac nurse practitioner. EMS obtained IV access will add laboratory studies CIWA=4 Given 1 L normal saline, IV Ativan 1 mg, p.o. Librium 50 mg and gabapentin 300 mg 0935: Labs are consistent with recent seizure activity. No signs of acute kidney injury or electrolyte imbalance. Ethanol is 0 0945: RN notified me that patient asking to go home. He is alert and oriented x4. Eating breakfast and drinking juice without difficulty. Patient is appropriate for discharge. This patient was seen under the supervision of my primary supervising physician. I evaluated care for this patient independently. Differential Diagnosis: Seizure including but not limited to electrolyte abnormality, alcohol withdrawal , medication noncompliance, head injury, and breakthrough seizure. - Data Points Laboratory Results: Laboratory Results 07/18/18 08:40 07/18/18 08:40 Sodium 135 mEq/L mEq/L (135-145) Potassium 4.0 mEq/L mEq/L (3.5-5.2) Chloride 98 mEq/L mEq/L (97-110) Carbon Dioxide 19 mEq/l L mEq/l (22-31) Anion Gap 18 mEq/L H mEq/L (6-14) BUN 5 mg/dL L mg/dL (7-23) Creatinine 0.7 mg/dL mg/dL (0.7-1.3) Estimated GFR > 60 Glucose 127 mg/dL H mg/dL (70-100) Calcium 9.4 mg/dL mg/dL (8.5-10.4) Magnesium 1.6 mg/dL mg/dL (1.6-2.3) Ethyl Alcohol < 10 mg/dL mg/dL (0-10) Medications Given: Discontinued Medications Chlordiazepoxide HCl (Librium) 50 mg PO EDNOW ONE Stop: 07/18/18 09:07 Last Admin: 07/18/18 09:28 Dose: 50 mg Gabapentin (Neurontin) 300 mg PO EDNOW ONE Stop: 07/18/18 09:07 Last Admin: 07/18/18 09:28 Dose: 300 mg Sodium Chloride (Ns) 1,000 mls @ 0 mls/hr IV ONCE ONE; Wide Open PRN Reason: Protocol Stop: 07/18/18 09:07 Last Admin: 07/18/18 09:26 Dose: 1,000 mls Lorazepam (Ativan Injection) 1 mg IVP EDNOW ONE Stop: 07/18/18 09:07 Last Admin: 07/18/18 09:26 Dose: 1 mg Departure - Departure Disposition: Home, Routine, Self-Care Clinical Impression: Alcoholism /alcohol abuse, Seizure disorder Condition: Good Instructions: Epilepsy (ED), Alcohol Withdrawal (ED) Additional Instructions: Please keep your follow-up appointment on Thursday at the [facility]. Continue to take clonidine and gabapentin as prescribed. Consume a minimum of 8-10 glasses of water or electrolyte fluid replacement drinks that include Gatorade, Powerade, Pedialyte. Referrals: OTHER HEALTH CARE [place],. [[employer]] - 07/20/18 (Keep follow-up appointment on Thursday at the [facility].)
[2018-07-18 09:48] VITALS: BP 128/68
== END 2018-07-18 09:51 | disposition home or self-care (01) ==
LOC: EDUNIT#
DX: F10.10 Alcohol abuse, uncomplicated (principal); G40.909 Epilepsy, unspecified, not intractable, without status epilepticus; Z59.0 Homelessness; Z88.0 Allergy status to penicillin
CPT/HCPCS: 96374; G0480; J2060

== ENCOUNTER 2018-10-08 07:47 | Inpatient (IN) | payer MEDICAID | END 2018-10-13 06:45 | disposition left against medical advice (07) | LOC: F2N 12:41 ==